=== PATIENT | female | born 1980 | race Asian ===

== ENCOUNTER → 2018-10-13 | Outpatient (CLI) | payer OTHER, SELFPAY ==
[2018-10-13 14:18] VITALS: BMI 19.4
[2018-10-13 19:44] LABS: Chlamydia Trachomatis by PCR Negative (Negative); Neisserai gonorrhoeae by PCR Negative (Negative); Probe Check PASS; Sample Adequacy Control PASS; Specimen Processing Control PASS
[2018-10-19 16:58] LABS: HPV APTIMA, High Risk Negative (Negative)
== END | disposition home or self-care (01) ==
LOC: LABSPEC 17:52
PROVIDERS: Visit Provider Obstetrics & Gynecology
DX: O09.519 Supervision of elderly primigravida, unspecified trimester (principal); Z12.4 Encounter for screening for malignant neoplasm of cervix; Z3A.00 Weeks of gestation of pregnancy not specified
CPT/HCPCS: 87086; 87491; 87591; 87624; 88175; G0145

== ENCOUNTER → 2018-10-17 | Outpatient (CLI) | payer OTHER, SELFPAY ==
[2018-10-13 14:18] VITALS: BMI 19.4
[2018-10-17 16:01] LABS: Absolute Lymphocyte Count 1.28 X10^3/uL (0.83-4.51); Basophil# 0.02 X10^3/uL; Basophil% 0.2 % (0-1); Eosinophil# 0.14 X10^3/uL; Eosinophils% 1.6 % (0-5); Hematocrit 39.4 % (37-47); Hemoglobin 13.4 g/dL (12.0-15.0); Lymphocyte # 1.28 X10^3/ul (4.0); Lymphocyte % 14.4 % (19-41); Mean Corpuscular Hgb 29.6 pg (27.0-32.0); Mean Corpuscular Volume 87.2 fL (81-99); Mean Platelet Vol. 10.4 fl (6.2-12.0); Monocyte# 0.41 X10^3/uL; Monocyte% 4.6 % (0-10); NRBC Flagged by Analyzer 0 % (0-5); Neutrophil # 7.03 X10^3/uL (2.7-7.7); Neutrophil % 78.9 % (47-70); Platelet Count 192 K/mm3 (150-450); RBC Distribution Width CV 14.1 % (11.6-14.6); RBC Distribution Width SD 45.1 fl (35.1-43.9); Red Blood Count 4.52 M/mm3 (4.2-5.4); White Blood Count 8.9 K/mm3 (4.4-11.0)
[2018-10-18 09:25] LABS: HIV - WCH Non-Reactive (Nonreactive); Hepatitis B Surface Antigen Non-Reactive (Nonreactive)
[2018-10-21 00:53] LABS: Rapid Plasmin Reagin (RPR) NONREACTIVE (NONREACTIVE)
== END | disposition home or self-care (01) ==
LOC: PAVLAB 15:05
PROVIDERS: Referring Provider Obstetrics & Gynecology; Visit Provider Obstetrics & Gynecology
DX: O09.519 Supervision of elderly primigravida, unspecified trimester (principal); Z3A.00 Weeks of gestation of pregnancy not specified
CPT/HCPCS: 36415; 85025; 86592; 86703; 86762; 86850; 86900; 86901; 87340

== ENCOUNTER 2019-01-14 01:10 | Outpatient (CLI) | payer OTHER, SELFPAY ==
[2018-12-23 17:00] VITALS: BMI 20.9
--- NOTE | 2019-01-14 02:08 | CT_ITS ---
STUDY: CT ABDOMEN AND PELVIS WITHOUT CONTRAST REASON FOR EXAM: Female, 38 years old. Right lower quadrant pain. Patient is 21 weeks . RADIATION DOSAGE (If Supplied By Facility): CTDIvol = ( 6.06 ) mGy, DLP = ( 285.97 ) mGycm TECHNIQUE: Transaxial images were obtained from the dome of the diaphragm to the symphysis pubis without oral contrast, and without intravenous contrast. Sagittal and coronal images were reconstructed. Individualized dose optimization techniques were used for this CT. COMPARISON: None. FINDINGS: The visualized lung bases are unremarkable. The visualized portions of the heart are within normal limits. Normal liver. Normal gallbladder and extrahepatic biliary system. Normal spleen. Normal pancreas. Normal bilateral adrenal glands. Normal right kidney. Normal left kidney. Normal visualized stomach. Normal small intestine. The colon is tortuous with increased fecal debris consistent with constipation. Centimeters tubular structure is seen just below the ileocecal valve and seen on coronal images 46, 47 and 48 measuring 4.7 mm most compatible with normal appendix. Normal abdominal aorta. Normal inferior vena cava. Normal retroperitoneum. Normal urinary bladder. There is visualization of the intrauterine with known age of 21 weeks gestation. Normal abdominal wall. Normal osseous structures. CT/Abdomen/Pelvis without Cont IMPRESSION: Constipation. No signs of acute appendicitis. Abdominal viscera within normal limits. Electronically Signed: Yeny Garcia MD at 3:24 EST , Service support ,
[2019-01-14 02:10] VITALS: BMI 21.2
[2019-01-14 02:42] LABS: Absolute Lymphocyte Count 1.86 X10^3/uL (0.83-4.51); Absolute Neutrophil Count 10.7 X10^3/uL (2.0-7.7); Basophil# 0.02 X10^3/uL; Basophil% 0.1 % (0-1); Eosinophil# 0.13 X10^3/uL; Hematocrit 37.4 % (37-47); Hemoglobin 12.1 g/dL (12.0-15.0); Lymphocyte # 1.86 X10^3/ul (4.0); Lymphocyte % 13.6 % (19-41); Mean Corp Hgb Conc 32.4 g/dL (32-36); Mean Corpuscular Volume 86.6 fL (81-99); Mean Platelet Vol. 10.6 fl (6.2-12.0); Monocyte% 6.6 % (0-10); NRBC Flagged by Analyzer 0 % (0-5); Neutrophil # 10.71 X10^3/uL (2.7-7.7); Neutrophil % 78.3 % (47-70); Platelet Count 197 K/mm3 (150-450); RBC Distribution Width CV 13.4 % (11.6-14.6); RBC Distribution Width SD 41.7 fl (35.1-43.9); Red Blood Count 4.32 M/mm3 (4.2-5.4); White Blood Count 13.7 K/mm3 (4.4-11.0)
[2019-01-14 02:53] LABS: Color, Urine Yellow (Yellow); Glucose, Dipstick Normal (Normal); Ketone-Dipstick Negative (Negative); Leukocyte Esterase-Dipstick 25 /ul (Negative); Nitrite-Dipstick Negative (Negative); Occult Blood-Urine Negative /ul (Negative); Protein-Dipstick Negative (Negative); Specific Gravity, Urine 1.015 (1.002-1.030); Urine Bilirubin Dipstick Negative (Negative); Urine Clarity Sl. Cloudy (Clear); Urine Urobilinogen Normal (Normal); Urine pH 6.5 (5.0 - 8.0)
[2019-01-14 03:00] LABS: ALB/GLOB Ratio 0.8 RATIO (0.9-2.4); AST(SGOT) 18 U/L (15-37); Alanine Aminotransfer ALT/SGPT 17 U/L (13-56); Albumin, Serum 3.1 g/dL (3.2-5.0); Alkaline Phosphatase 60 U/L (45-117); Anion Gap 6 (5-15); BUN 10 mg/dL (7-18); BUN/Creat Ratio 19.7 RATIO (10-20); Calcium,Total 8.9 mg/dL (8.5-10.1); Chloride 108 mmol/L (98-107); Creatinine, Serum 0.51 mg/dL (0.55-1.02); EST Glomerular Filtration Rate 144 mL/min (>60); Est Glom Filt Rate - Afr Amer 174 mL/min (>60); Estimated Creatinine Clearance 112.86 ml/min; Globulin 3.8 g/dL (2.2-4.2); Glucose 83 mg/dL (74-106); Potassium 3.9 mmol/L (3.5-5.1); Protein, Total 6.9 g/dL (6.4-8.2); Sodium Level 140 mmol/L (136-145)
[2019-01-14] MEDS: Lactated Ringers 1,000 ML 999 ML IV (03:04)
--- NOTE | 2019-01-14 09:15 | OB.TRI.PN_ITS ---
Progress Notes Date of Service: 01/14/19 Progress Note: Patient presents for triage evaluation secondary to abdominal pain FHT: 130 toco no ctx Assessment and plan: abdominal pain nl ct scan, constipation seen recommend stool softeners reassuring maternal and status patient discharged to home to follow-up as scheduled. See problem list details for additional plan information. Laboratory Studies: Laboratory Tests 01/14/19 01/14/19 01/14/19 Range/Units 02:45 02:25 02:25 WBC 13.7 H (4.4-11.0) K/mm3 RBC 4.32 (4.2-5.4) M/mm3 Hgb 12.1 (12.0-15.0) g/dL Hct 37.4 (37-47) % MCV 86.6 (81-99) fL MCH 28.0 (27.0-32.0) pg MCHC 32.4 (32-36) g/dL RDW Std Deviation 41.7 (35.1-43.9) fl RDW Coeff of Leonard 13.4 (11.6-14.6) % Plt Count 197 (150-450) K/mm3 MPV 10.6 (6.2-12.0) fl Immature Gran % (Auto) 0.400 (0.0-0.9) % Neut % (Auto) 78.3 H (47-70) % Lymph % (Auto) 13.6 L (19-41) % [place] % (Auto) 6.6 (0-10) % Eos % (Auto) 1.0 (0-5) % Baso % (Auto) 0.1 (0-1) % Absolute Neuts (auto) 10.7 H (2.0-7.7) X10^3/uL Absolute Lymphs (auto) 1.86 (0.83-4.51) X10^3/uL Nucleated RBC % 0 (0-5) % Sodium 140 (136-145) mmol/L Potassium 3.9 (3.5-5.1) mmol/L Chloride 108 H (98-107) mmol/L Carbon Dioxide 26.0 (21.0-32.0) mmol/L Anion Gap 6 (5-15) BUN 10 (7-18) mg/dL Creatinine 0.51 L (0.55-1.02) mg/dL Estim Creat Clear Calc 112.86 ml/min Est GFR (MDRD) Af Amer 174 (>60) mL/min Est GFR (MDRD) Non-Af 144 (>60) mL/min BUN/Creatinine Ratio 19.7 (10-20) RATIO Glucose 83 (74-106) mg/dL Calcium 8.9 (8.5-10.1) mg/dL Total Bilirubin 0.50 (0.20-1.00) mg/dL AST 18 (15-37) U/L ALT 17 (13-56) U/L Alkaline Phosphatase 60 (45-117) U/L Total Protein 6.9 (6.4-8.2) g/dL Albumin 3.1 L (3.2-5.0) g/dL Globulin 3.8 (2.2-4.2) g/dL Albumin/Globulin Ratio 0.8 L (0.9-2.4) RATIO Urine Color Yellow (Yellow) Urine Clarity Sl. Cloudy (Clear) Urine pH 6.5 (5.0 - 8.0) Ur Specific [place] 1.015 (1.002-1.030) Urine Protein Negative (Negative) mg/dl Urine Glucose (UA) Normal (Normal) mg/dl Urine Ketones Negative (Negative) mg/dl Urine Occult Blood Negative (Negative) /ul Urine Nitrite Negative (Negative) Urine Bilirubin Negative (Negative) mg/dL Urine Urobilinogen Normal (Normal) mg/dl Ur Leukocyte Esterase 25 H (Negative) /ul - Problem List (1) Abdominal pain affecting Status: Acute Comment: 01/14- seen for abdominal pain, nl ct scan constipation seen Multi Select Codes - Urinary/Genital Urinary/Genital CPT Codes: Other Procedure See Report - no charge
== END 2019-01-14 04:30 | disposition home or self-care (01) ==
LOC: WPOUT 01:15 → WP 01:16
PROVIDERS: Visit Provider Obstetrics & Gynecology
DX: O99.612 Diseases of the digestive system complicating pregnancy, second trimester (principal); K59.00 Constipation, unspecified; Z3A.21 21 weeks gestation of pregnancy
CPT/HCPCS: 96360; 36415; 59050; 74176; 80053; 81002; 85025; 99218; J7120; G0378

== ENCOUNTER → 2019-02-16 16:41 | Outpatient (CLI) | payer OTHER, SELFPAY ==
[2019-02-16 16:19] VITALS: BMI 21.2
[2019-02-16 17:28] LABS: Absolute Lymphocyte Count 1.26 X10^3/uL (0.83-4.51); Absolute Neutrophil Count 7.6 X10^3/uL (2.0-7.7); Basophil# 0.02 X10^3/uL; Basophil% 0.2 % (0-1); Eosinophil# 0.14 X10^3/uL; Eosinophils% 1.4 % (0-5); Hematocrit 33.3 % (37-47); Hemoglobin 10.5 g/dL (12.0-15.0); Lymphocyte # 1.26 X10^3/ul (4.0); Mean Corp Hgb Conc 31.5 g/dL (32-36); Mean Corpuscular Hgb 26.9 pg (27.0-32.0); Mean Corpuscular Volume 85.2 fL (81-99); Mean Platelet Vol. 10.6 fl (6.2-12.0); Monocyte# 0.64 X10^3/uL; Monocyte% 6.6 % (0-10); NRBC Flagged by Analyzer 0 % (0-5); Neutrophil # 7.57 X10^3/uL (2.7-7.7); Neutrophil % 78.4 % (47-70); Platelet Count 198 K/mm3 (150-450); RBC Distribution Width CV 13.2 % (11.6-14.6); RBC Distribution Width SD 40.8 fl (35.1-43.9); Red Blood Count 3.91 M/mm3 (4.2-5.4); White Blood Count 9.7 K/mm3 (4.4-11.0)
[2019-02-16 18:29] LABS: Glucose Challenge Gest 1H 50g 119 mg/dL (70-140)
[2019-02-17 10:11] LABS: Hepatitis B Surface Antigen Non-Reactive (Nonreactive)
== END ==
PROVIDERS: Referring Provider Obstetrics & Gynecology; Visit Provider Obstetrics & Gynecology
DX: O09.519 Supervision of elderly primigravida, unspecified trimester (principal)
CPT/HCPCS: 36415; 82950; 85025; 87340

== ENCOUNTER → 2019-03-24 16:13 | Outpatient (CLI) | payer OTHER, SELFPAY ==
[2019-03-24 15:39] VITALS: BMI 21.2
[2019-03-24 17:13] LABS: Absolute Lymphocyte Count 1.17 X10^3/uL (0.83-4.51); Absolute Neutrophil Count 6.9 X10^3/uL (2.0-7.7); Basophil# 0.02 X10^3/uL; Basophil% 0.2 % (0-1); Eosinophil# 0.18 X10^3/uL; Hematocrit 39.3 % (37-47); Hemoglobin 11.9 g/dL (12.0-15.0); Lymphocyte # 1.17 X10^3/ul (4.0); Lymphocyte % 13.2 % (19-41); Mean Corp Hgb Conc 30.3 g/dL (32-36); Mean Corpuscular Hgb 25.8 pg (27.0-32.0); Mean Corpuscular Volume 85.2 fL (81-99); Mean Platelet Vol. 11.5 fl (6.2-12.0); Monocyte# 0.53 X10^3/uL; NRBC Flagged by Analyzer 0 % (0-5); Neutrophil # 6.94 X10^3/uL (2.7-7.7); Neutrophil % 78.1 % (47-70); Platelet Count 195 K/mm3 (150-450); RBC Distribution Width CV 17.7 % (11.6-14.6); RBC Distribution Width SD 51.7 fl (35.1-43.9); Red Blood Count 4.61 M/mm3 (4.2-5.4); White Blood Count 8.9 K/mm3 (4.4-11.0)
== END ==
PROVIDERS: Referring Provider Obstetrics & Gynecology; Visit Provider Obstetrics & Gynecology
DX: D64.9 Anemia, unspecified (principal)
CPT/HCPCS: 36415; 85025

== ENCOUNTER → 2019-04-24 | Outpatient (CLI) | payer OTHER, SELFPAY ==
[2019-04-24 15:50] VITALS: BMI 21.2
== END | disposition home or self-care (01) ==
PROVIDERS: Visit Provider Obstetrics & Gynecology
DX: O09.519 Supervision of elderly primigravida, unspecified trimester (principal); Z3A.00 Weeks of gestation of pregnancy not specified
CPT/HCPCS: 87081

== ENCOUNTER → 2019-05-18 12:18 | Outpatient (CLI) | payer OTHER, SELFPAY ==
[2019-05-15 15:37] VITALS: BMI 21.2
--- NOTE | 2019-05-18 12:19 | US_ITS ---
STUDY: OBSTETRICAL ULTRASOUND - BIOPHYSICAL PROFILE REASON FOR EXAM: Female, 38 years old WELL BEING LMP: August 14, 2018 PRIOR ULTRASOUND: None. TECHNIQUE: Transabdominal TECHNICAL QUALITY: Adequate. FINDINGS: There is a single intrauterine fetus. The fetus is in a cephalic presentation. There is demonstrated cardiac activity with a heart rate of 138 bpm. There is a normal amniotic fluid volume. The largest amniotic fluid pocket measures 3.45 cm. The amniotic fluid index (TAMERA) is 7.68 cm. The placenta is anterior in location and is not low lying. There are Grade 2 placental changes. Age by LMP: 39 weeks, 4 days. MADELYN by LMP: May 21, 2019. Gender: Female BIOPHYSICAL PROFILE: Breathing Movements (FBM): 2 Gross Body Movements (GBM): 2 Tone (FT): 2 Amniotic Fluid Volume (AFV): 2 TOTAL SCORE: 8 / 8 US/Biophysical Profile IMPRESSION: Normal biophysical profile of 8/8. Electronically Signed: Job Gardner, at 14:55 EDT , Service support ,
== END ==
PROVIDERS: Referring Provider Obstetrics & Gynecology; Visit Provider Obstetrics & Gynecology
DX: O09.519 Supervision of elderly primigravida, unspecified trimester (principal); O34.10 Maternal care for benign tumor of corpus uteri, unspecified trimester; D25.9 Leiomyoma of uterus, unspecified
CPT/HCPCS: 76818

== ENCOUNTER 2019-05-21 11:54 | Inpatient (IN) | payer OTHER, SELFPAY ==
[2019-05-15 15:37] VITALS: BMI 21.2
[2019-05-21] VITALS (33 sets, daily range): BP systolic 91–134; BP diastolic 52–78; PULSE 68–106; TEMP 36.2–37.2; O2SAT 84–100; BMI 23.1
--- NOTE | 2019-05-21 12:23 | HP.PCM_ITS ---
- Problem List (1) Mild anemia Status: Acute Comment: repeat CBC in 1 month-wnl (2) Uterine fibroids affecting Status: Acute Comment: growth us q 4 weeks, right lower uterus, 04/20 adequate growth, stable fibroids (3) Choroid plexus cyst of fetus Status: Acute (4) Influenza vaccine administered Status: Acute Comment: given on 11/25/18 (5) Uterine fibroid in Status: Acute Comment: low posterior 6.53cm x 4.17cm Rpt US 4 weeks (6) Status: Acute Qualifiers: Comment: nl carrier ntd. NIPT low risk. Normal Anatomy, adequate growth (7) Supervision of primigravida of advanced maternal age, antepartum Status: Acute Comment: PRR MADELYN 05/21/19 girl Mic History Date of Admission: 05/21/19 Final MADELYN: 05/21/19 Gestational age: 40 Weeks and 0 Days History of this : This is a 38 year-old, at 40 weeks gestational age presents for IOL AMA. she had questionable LOF, rom plus was sent. no regular ctx Medical History: Medical History (Last Reviewed 05/15/19 @ 15:37 by Kathie Dudley) Stomach ulcer K25.9 Surgical History: Surgical History (Last Reviewed 05/15/19 @ 15:37 by Kathie Dudley) No significant past medical history Allergies No Known Allergies Allergy (Verified 05/15/19 15:37) Home Medications: Home Medications PNV 22-iron 27 mg iron-folic acid 1 mg-docusate 50 mg-dha 250 mg pack 1 pkg PO DAILY ea 10/13/18 Smoking Status: Never smoker Alcohol: None Number of Fetus(es): 1 NST - FHR Rate Baby A Baseline: 130 Variability:: Moderate Accelerations:: 15 x 15 Decelerations:: None NST Reactive:: Yes FHR Category:: Category I Uterine Activity:: no regular History Past Pregnancies: Past Pregnancies Delivery Date Name GA/ Weeks Outcome Route Wt Sex Labor Length Anesthesia Delivery Location Provider FOB Labs: Social History Smoking Status Never smoker Review of Systems Constitutional: Denies: Fever, Malaise Eyes: Denies: Blurred vision, Vision Change HEENT: Denies: Head Aches, Visual Changes Cardiovascular: Denies: Chest Pain, Palpitations Respiratory: Denies: Cough, Shortness of Breath, Wheezing Gastrointestinal: Denies: Abdominal Pain, Diarrhea, Nausea, Vomiting Genitourinary: Denies: Dysuria, Hematuria Musculoskeletal: Denies: Joint Pain, Muscle pain Skin: Denies: Lesions, Rash Neurological: Denies: Blurred vision, Focal weakness, Headaches Psychiatric: Denies: Anxiety, Depression Endocrine: Denies: Heat/ Cold Intolerance Hematologic/ Lymphatic: Denies: Easy Bruising, Easy Bleeding Physical Exam General: Alert, Cooperative, No apparent distress HEENT: Atraumatic, Normocephalic. Negative for: Thyromegaly, Lymphadenopathy Cardiovascular: Regular rate Lungs: Normal air movement Abdomen: Soft, Non Tender, Gravid Neurological: Deep Tendon Reflexes 2+/4 and Symmetrical, Neuro grossly intact. Negative for: Clonus [employer]: Normal external genitalia. Negative for: Vulvar lesions Estimated gestational size: Appropriate for gestational size Presentation: Cephalic Assessment/Plan All Active Problems (Last Reviewed 05/15/19 @ 15:37 by Kathie Dudley) Mild anemia (Acute) Uterine fibroids affecting (Acute) Choroid plexus cyst of fetus (Acute) Influenza vaccine administered (Acute) Uterine fibroid in (Acute) (Acute) Supervision of primigravida of advanced maternal age, antepartum (Acute) Abdominal pain affecting (Resolved) This is a 38 year-old, at 40 weeks gestational age presents for IOL ama. Patient presents IOL, plan management for , pitocin/AROM. Pain management: Plans epidural. GBS negative. Management of any complications: None I have reviewed the [facility] and made any clinically relevant updates.
[2019-05-21] MEDS: Lactated Ringers 1,000 ML 50 ML IV (13:05)
[2019-05-21 13:56] LABS: Absolute Lymphocyte Count 1.23 X10^3/uL (0.83-4.51); Absolute Neutrophil Count 5.8 X10^3/uL (2.0-7.7); Basophil# 0.02 X10^3/uL; Basophil% 0.3 % (0-1); Eosinophil# 0.07 X10^3/uL; Eosinophils% 0.9 % (0-5); Hematocrit 38.7 % (37-47); Hemoglobin 12.3 g/dL (12.0-15.0); Lymphocyte # 1.23 X10^3/ul (4.0); Mean Corp Hgb Conc 31.8 g/dL (32-36); Mean Corpuscular Hgb 25.7 pg (27.0-32.0); Mean Corpuscular Volume 80.8 fL (81-99); Mean Platelet Vol. 12.1 fl (6.2-12.0); Monocyte# 0.52 X10^3/uL; Monocyte% 6.8 % (0-10); NRBC Flagged by Analyzer 0 % (0-5); Neutrophil # 5.83 X10^3/uL (2.7-7.7); Neutrophil % 75.6 % (47-70); Platelet Count 161 K/mm3 (150-450); RBC Distribution Width CV 16.2 % (11.6-14.6); RBC Distribution Width SD 47.1 fl (35.1-43.9); Red Blood Count 4.79 M/mm3 (4.2-5.4); White Blood Count 7.7 K/mm3 (4.4-11.0)
[2019-05-21] MEDS: Oxytocin 30 units/NS 500 ml 30 UNITS/500 ML IV.SOLN IV (13:58)
[2019-05-21] MEDS: Lactated Ringers 500 ML 999 ML IV ×3 (18:20→20:14)
[2019-05-21] MEDS: fentaNYL-bupivacaine (epidural) 100 ML BAG EPIDURAL ×2 (19:54→23:59)
[2019-05-21] MEDS: Lactated Ringers 1,000 ML 200 ML IV (23:51)
[2019-05-22] VITALS (35 sets, daily range): BP systolic 89–119; BP diastolic 53–69; PULSE 76–99; RESP 14–16; TEMP 36.3–38; O2SAT 94–99
[2019-05-22] MEDS: Lactated Ringers 500 ML 999 ML IV (02:07)
[2019-05-22] MEDS: Lactated Ringers 1,000 ML 200 ML IV ×2 (05:02→10:10)
[2019-05-22] MEDS: fentaNYL-bupivacaine (epidural) 100 ML BAG EPIDURAL (05:02)
--- NOTE | 2019-05-22 06:54 | PCM.PN.BLA ---
Progress Note Patient comfortable with epidural. Pitocin was off for period of time due to category 2 tracing. Not restarted at 2 milliunits but has not been increased due to minimal variability. Tracing reviewed and exam station. With cervical check heart tones positive acceleration and moderate variability therefore plan increasing Pitocin per protocol. There appears to be adequate room on pelvic exam although the patient has several known large fibroids that could be interfering with labor. Continue Pitocin per protocol STROKE Vital Signs/Narrative: Vital Signs Temp Pulse BP Pulse Ox 05/22/19 06:17 82 101/59 L 95 05/22/19 05:08 83 94/54 L 05/22/19 05:07 98.7 F 95 05/22/19 04:22 80 90/54 L 05/22/19 04:21 98.4 F 98 05/22/19 03:37 89 93/55 L 97
[2019-05-22] MEDS: Oxytocin 30 units/NS 500 ml 30 UNITS/500 ML IV.SOLN 334 UNITS IV (11:22)
[2019-05-22] MEDS: 0.9% Saline Lock 10 ML Syringe IV (15:10)
[2019-05-22] MEDS: Naproxen 250 MG Tablet 500 MG PO (16:14)
[2019-05-22] MEDS: Acetaminophen 500 MG Tablet 1000 MG PO (20:40)
[2019-05-23] MEDS: Naproxen 250 MG Tablet 500 MG PO ×2 (01:41→19:51)
[2019-05-23 03:00] VITALS: TEMP 36.2
[2019-05-23 04:41] VITALS: BP 91/49; PULSE 75; RESP 16; TEMP 36.4; O2SAT 98
--- NOTE | 2019-05-23 06:32 | PCM.PN.OB ---
Subjective: doing well no complaints pain controlled no CP SOB N V ambulating well tolerating po lochia moderate, going well - Physical Exam Vitals/I&O's: Vital Signs Temp Pulse Resp BP Pulse Ox 97.6 F L 75 16 91/49 L 98 05/23/19 04:41 05/23/19 04:41 05/23/19 04:41 05/23/19 04:41 05/23/19 04:41 Oxygen Delivery Method Room Air Weight: 122 lb 2.177 oz Body Mass Index (BMI) 23.1 Intake and Output for Last 24 Hours 05/21/19 05/22/19 05/23/19 23:59 23:59 23:59 Intake Total 2474.60 / 2474.60 3958.13 / 3958.13 Output Total 2700 / 2700 Balance 2474.60 / 2474.60 1258.13 / 1258.13 General: Alert, Oriented x3 Current Medications Acetaminophen (Tylenol) 1,000 mg PO Q8H PRN PRN PRN Reason: Pain or Fever Last Admin: 05/22/19 20:40 Dose: 1,000 mg Documented by: Bisacodyl (Dulcolax) 10 mg RECTAL UD PRN PRN Reason: If no BM Dibucaine (Dibucaine) 1 applic TOPICAL TID PRN PRN; Protocol PRN Reason: Discomfort Hydrocortisone (Hytone) 1 applic TOPICAL TID PRN PRN; Protocol PRN Reason: Discomfort Naproxen (Naprosyn) 500 mg PO Q8H PRN PRN PRN Reason: Pain Score 1-3/10 Last Admin: 05/23/19 01:41 Dose: 500 mg Documented by: Senna/Docusate Sodium (Senokot-S, Samira-Colace) 1 - 2 tablet PO DAILY PRN PRN PRN Reason: Constipation Simethicone (Mylicon) 80 mg PO PCHS PRN PRN Reason: Indigestion/Stomach pain Medical Necessity - Tobacco Use Smoking Status: Never smoker Assessment/Plan All Active Problems (Last Reviewed 05/15/19 @ 15:37 by Kathie Dudley) Mild anemia (Acute) Uterine fibroids affecting (Acute) Choroid plexus cyst of fetus (Acute) Influenza vaccine administered (Acute) Uterine fibroid in (Acute) (Acute) Supervision of primigravida of advanced maternal age, antepartum (Acute) Abdominal pain affecting (Resolved) s/p PPD # 1 1. routine post delivery care 2. breast feeding- support given 3. rh positive 4. rubella immune
--- NOTE | 2019-05-23 07:20 | OP.PCM_ITS ---
Problem List (1) Mild anemia Status: Acute Comment: repeat CBC in 1 month-wnl (2) Uterine fibroids affecting Status: Acute Comment: growth us q 4 weeks, right lower uterus, 04/20 adequate growth, stable fibroids (3) Choroid plexus cyst of fetus Status: Acute (4) Influenza vaccine administered Status: Acute Comment: given on 11/25/18 (5) Uterine fibroid in Status: Acute Comment: low posterior 6.53cm x 4.17cm Rpt US 4 weeks (6) Status: Acute Qualifiers: Comment: nl carrier ntd. NIPT low risk. Normal Anatomy, adequate growth (7) Supervision of primigravida of advanced maternal age, antepartum Status: Acute Comment: PRR MADELYN 05/21/19 girl Cune Vaginal Delivery Maternal Presentation: Medically Indicated Induction iol ama Amniotic Membrane Rupture Type: Artificial Amniotic Fluid Description: Clear Final MADELYN: 05/21/19 Gestational age: 40 Weeks and 2 Days Date of Procedure: 05/22/19 Pre-Operative Diagnosis: iol ama Post-Operative Diagnosis: same Surgery/ Procedure Performed: Spontaneous Vaginal Delivery Type of Anesthesia: Epidural Description of Procedure: Patient began pushing and delivered the head in the KIA presentation. The head was delivered atraumatically. The anterior and posterior shoulders delivered without complication followed by the rest of the infant and the infant was placed on the maternal abdomen. Delayed cord clamping was employed for approxi mately 60 seconds. Cord was clamped and cut and gentle traction was applied to the cord and the placenta delivered spontaneously immediately following it was noted to be intact with three-vessel cord. The perineum and vagina were inspected and noted to have a second-degree perineal laceration that was repaired in the usual fashion with 3-0 Vicryl repeat. EBL was 200 cc. Patient and infant tolerated delivery well. Presentation: KIA Placental Delivery Description: Spontaneous Placenta Disposition: [facility] Estimated Blood Loss: 200 Infant A gender: Female Episiotomy Description: None Laceration: Perineal Extension/lac, 2nd degree Medications given after delivery: IV Pitocin Complications: None Multi Select Codes - Urinary/Genital Urinary/Genital CPT Codes: 78078 [facility]
--- NOTE | 2019-05-23 07:22 | DCINST_ITS ---
Discharge Diet: No Restrictions Discharge Activity: Return to Normal Activity, May not drive while taking narcotic pain medications., May Shower May resume sexual activity in: 4-6 weeks Call your doctor if your incision/area has: Continuous Slow Oozing, Sudden Increased Bleeding, Increased Pain/ Swelling, Increased Redness, Foul Smelling Discharge Additional Instructions: If you experience any of the following, contact your healthcare provider. * Bleeding that soaks a pad every hour for 2 hours * Fever 100.4 or higher * Unrelieved incision or abdominal pain * Swelling, redness, discharge or bleeding from your incision or episiotomy site * Your incision begins to separate * Problems urinating (including inability to urinate or burning while urinating). * Visual changes * Severe headache * Flu-like symptoms * Pain or redness in one of both of your breasts * Pain, warmth, tenderness or swelling in your legs, especially the calf area * Frequent nausea and vomiting * Symptoms of depression or anxiety If you experience any of the following, call 911 or go to the nearest Emergency Room. * Chest pain * Problems breathing * Seizure activity * Partial or complete paralysis of a body part, slurred speech, weakness or drooping of the face, or a sudden inability to walk or hold your balance Allergies/Adverse Reactions: Allergies No Known Allergies Allergy (Verified 05/15/19 15:37) Medications to take at Discharge PNV 22-iron 27 mg iron-folic acid 1 mg-docusate 50 mg-dha 250 mg pack 1 pkg PO DAILY ea 10/13/18 Naproxen [Naprosyn] 250 - 500 mg PO Q8H PRN PRN #30 tab 05/23/19 The following prescriptions were given: Naproxen [Naprosyn] 250 - 500 mg PO Q8H PRN PRN #30 tab PRN Reason: MILD PAIN Transmission Status: Pending to [facility] Please Follow Up With: Taniya Senior MD - [phone] When: Call to make an appointment with your doctor in 6 weeks. If you had elevated Blood pressure or 4th degree laceration you will need to be seen in 2 weeks. Primary Care Physician: Care Physician,No Primary [Primary Care Provider] - Test Results: Test results from this visit will be discussed in further detail at your follow- up appointment, if applicable.
--- NOTE | 2019-05-23 07:22 | PCM.DCVAG ---
Discharge Diet: No Restrictions Discharge Activity: Return to Normal Activity, May not drive while taking narcotic pain medications., May Shower May resume sexual activity in: 4-6 weeks Call your doctor if your incision/area has: Continuous Slow Oozing, Sudden Increased Bleeding, Increased Pain/ Swelling, Increased Redness, Foul Smelling Discharge Additional Instructions: If you experience any of the following, contact your healthcare provider. Bleeding that soaks a pad every hour for 2 hours Fever 100.4 or higher Unrelieved incision or abdominal pain Swelling, redness, discharge or bleeding from your incision or episiotomy site Your incision begins to separate Problems urinating (including inability to urinate or burning while urinating). Visual changes Severe headache Flu-like symptoms Pain or redness in one of both of your breasts Pain, warmth, tenderness or swelling in your legs, especially the calf area Frequent nausea and vomiting Symptoms of depression or anxiety If you experience any of the following, call 911 or go to the nearest Emergency Room. Chest pain Problems breathing Seizure activity Partial or complete paralysis of a body part, slurred speech, weakness or drooping of the face, or a sudden inability to walk or hold your balance Allergies/Adverse Reactions: Allergies No Known Allergies Allergy (Verified 05/15/19 15:37) Medications to take at Discharge PNV 22-iron 27 mg iron-folic acid 1 mg-docusate 50 mg-dha 250 mg pack 1 pkg PO DAILY ea 10/13/18 Naproxen [Naprosyn] 250 - 500 mg PO Q8H PRN PRN #30 tab 05/23/19 The following prescriptions were given: Naproxen [Naprosyn] 250 - 500 mg PO Q8H PRN PRN #30 tab PRN Reason: MILD PAIN Transmission Status: Pending to [facility] Please Follow Up With: Taniya Senior MD - [phone] When: Call to make an appointment with your doctor in 6 weeks. If you had elevated Blood pressure or 4th degree laceration you will need to be seen in 2 weeks. Primary Care Physician: Care Physician,No Primary [Primary Care Provider] - Test Results: Test results from this visit will be discussed in further detail at your follow-up appointment, if applicable.
[2019-05-23 08:45] VITALS: BP 95/57; PULSE 77; RESP 16; TEMP 36.4; O2SAT 98
[2019-05-23 14:30] VITALS: BP 101/53; PULSE 95; RESP 16; TEMP 36.7; O2SAT 98
[2019-05-23 19:40] VITALS: BP 99/51; PULSE 85; RESP 16; TEMP 36.8; O2SAT 97
[2019-05-23] MEDS: Dibucaine 30 GM Tube 1 APPLIC TOPICAL (19:51)
[2019-05-24 02:55] VITALS: BP 106/45; PULSE 70; RESP 17; TEMP 36.8; O2SAT 99
[2019-05-24] MEDS: Naproxen 250 MG Tablet 500 MG PO (03:58)
--- NOTE | 2019-05-24 07:39 | PCM.PN.OB ---
Subjective: Doing well, no complaints.Pain controlled. Denies CP, SOB, N,V. Ambulating well, tolerating po. Lochia moderate, going well. - Physical Exam Vitals/I&O's: Vital Signs Temp Pulse Resp BP Pulse Ox 98.2 F 70 17 106/45 L 99 05/24/19 02:55 05/24/19 02:55 05/24/19 02:55 05/24/19 02:55 05/24/19 02:55 Oxygen Delivery Method Room Air Weight: 122 lb 2.177 oz Body Mass Index (BMI) 23.1 Intake and Output for Last 24 Hours 05/22/19 05/23/19 05/24/19 23:59 23:59 23:59 Intake Total 3958.13 / 3958.13 Output Total 2700 / 2700 Balance 1258.13 / 1258.13 General: Alert, Oriented x3 Abdomen: Soft, Non Tender, - - FF below U Current Medications Acetaminophen (Tylenol) 1,000 mg PO Q8H PRN PRN PRN Reason: Pain or Fever Last Admin: 05/22/19 20:40 Dose: 1,000 mg Documented by: Bisacodyl (Dulcolax) 10 mg RECTAL UD PRN PRN Reason: If no BM Dibucaine (Dibucaine) 1 applic TOPICAL TID PRN PRN; Protocol PRN Reason: Discomfort Last Admin: 05/23/19 19:51 Dose: 1 applicatio Documented by: Hydrocortisone (Hytone) 1 applic TOPICAL TID PRN PRN; Protocol PRN Reason: Discomfort Naproxen (Naprosyn) 500 mg PO Q8H PRN PRN PRN Reason: Pain Score 1-3/10 Last Admin: 05/24/19 03:58 Dose: 500 mg Documented by: Senna/Docusate Sodium (Senokot-S, Samira-Colace) 1 - 2 tablet PO DAILY PRN PRN PRN Reason: Constipation Simethicone (Mylicon) 80 mg PO PCHS PRN PRN Reason: Indigestion/Stomach pain Medical Necessity - Tobacco Use Smoking Status: Never smoker Assessment/Plan All Active Problems (Last Reviewed 05/15/19 @ 15:37 by Kathie Dudley) Mild anemia (Acute) Uterine fibroids affecting (Acute) Choroid plexus cyst of fetus (Acute) Influenza vaccine administered (Acute) Uterine fibroid in (Acute) (Acute) Supervision of primigravida of advanced maternal age, antepartum (Acute) Abdominal pain affecting (Resolved) s/p PPD # 2 1. routine post delivery care 2. breast feeding- support given 3. rh positive 4. rubella immune 5. encouraged stool softener 6. home today
[2019-05-24 08:00] VITALS: BP 106/45; PULSE 85; RESP 18; TEMP 36.7
[2019-05-24] MEDS: Acetaminophen 500 MG Tablet 1000 MG PO (08:30)
== END 2019-05-24 10:20 | disposition home or self-care (01) | DRG 807 ==
PROVIDERS: Admitting Provider Obstetrics & Gynecology; Referring Provider Obstetrics & Gynecology; Visit Provider Obstetrics & Gynecology
DX: O34.13 Maternal care for benign tumor of corpus uteri, third trimester (principal); Z37.0 Single live birth; Z3A.40 40 weeks gestation of pregnancy; D25.9 Leiomyoma of uterus, unspecified; O35.8XX0 Maternal care for other (suspected) fetal abnormality and damage, not applicable or unspecified; O70.1 Second degree perineal laceration during delivery
CPT/HCPCS: 59050; 85025; 86850; 86900; 86901; 99218; J7120; A4216; G0378

== ENCOUNTER → 2019-09-12 12:49 | Outpatient (CLI) | payer OTHER, SELFPAY ==
[2019-08-23 12:10] VITALS: BMI 23.1
--- NOTE | 2019-09-12 12:49 | US_ITS ---
STUDY: ULTRASOUND OF THE FEMALE PELVIS - COMPLETE REASON FOR EXAM: Female, 38 years old. POST 4 MONTHS. HX OF FIBROIDS. LMP: 2019 TECHNIQUE: Transabdominal and Transvaginal TECHNICAL QUALITY: Adequate. COMPARISON: CT of the abdomen and pelvis, January 14, 2019. FINDINGS: The uterus is retroverted and is in a midline position. The uterus measures 9.1 x 5.2 x 4.1 cm. Normal uterine cervix. The endometrium measures 8 mm in thickness, and is hyperechoic. There is no demonstrated endometrial mass. In the fundus there is a 3.7 x 3.4 x 2.5 cm heterogenous fibroid. There is a right-sided pedunculated 4.4 x 3.5 x 3.2 cm. I.U.D. - The patient does not have an I.U.D. The right ovary is visualized. The right ovary measures 3.8 x 2.4 x 1.6 cm. There are multiple follicles of the right ovary without a dominant cyst. There is no visualized right adnexal mass or complex lesion. There is normal arterial and normal venous vascularity. The left ovary is visualized. The left ovary measures 3.0 x 2.5 x 1.2 cm. There is no left ovarian cyst or ovarian mass. There is no visualized left adnexal mass or complex lesion. There is normal arterial and normal venous vascularity. There is no fluid in the cul-de-sac. The urinary bladder is grossly normal. Polycystic ovary disease: No. US/Transvaginal Non- IMPRESSION: 1. Fibroid uterus. 2. Normal ovaries. Electronically Signed: Palmer Hernadez DO at 23:42 EDT Tel [phone], Service support ,
--- NOTE | 2019-09-12 12:49 | US_ITS ---
STUDY: ULTRASOUND OF THE FEMALE PELVIS - COMPLETE REASON FOR EXAM: Female, 38 years old. POST 4 MONTHS. HX OF FIBROIDS. LMP: 2019 TECHNIQUE: Transabdominal and Transvaginal TECHNICAL QUALITY: Adequate. COMPARISON: CT of the abdomen and pelvis, January 14, 2019. FINDINGS: The uterus is retroverted and is in a midline position. The uterus measures 9.1 x 5.2 x 4.1 cm. Normal uterine cervix. The endometrium measures 8 mm in thickness, and is hyperechoic. There is no demonstrated endometrial mass. In the fundus there is a 3.7 x 3.4 x 2.5 cm heterogenous fibroid. There is a right-sided pedunculated 4.4 x 3.5 x 3.2 cm. I.U.D. - The patient does not have an I.U.D. The right ovary is visualized. The right ovary measures 3.8 x 2.4 x 1.6 cm. There are multiple follicles of the right ovary without a dominant cyst. There is no visualized right adnexal mass or complex lesion. There is normal arterial and normal venous vascularity. The left ovary is visualized. The left ovary measures 3.0 x 2.5 x 1.2 cm. There is no left ovarian cyst or ovarian mass. There is no visualized left adnexal mass or complex lesion. There is normal arterial and normal venous vascularity. There is no fluid in the cul-de-sac. The urinary bladder is grossly normal. Polycystic ovary disease: No. US/Pelvic (Non ) IMPRESSION: 1. Fibroid uterus. 2. Normal ovaries. Electronically Signed: Palmer Hernadez DO at 23:42 EDT Tel [phone], Service support ,
== END ==
PROVIDERS: Referring Provider Obstetrics & Gynecology; Visit Provider Obstetrics & Gynecology
DX: D25.9 Leiomyoma of uterus, unspecified (principal)
CPT/HCPCS: 76830; 76856

== ENCOUNTER 2020-07-12 11:07 | Outpatient (RCR) | payer OTHER, SELFPAY ==
[2019-08-23 12:10] VITALS: BMI 23.1
== END 2020-08-16 23:59 ==
LOC: IMMUN 11:07
PROVIDERS: Visit Provider Family Medicine
DX: Z23 Encounter for immunization (principal)
CPT/HCPCS: 0001A; 91300

== ENCOUNTER → 2020-09-06 15:27 | Outpatient (CLI) | payer OTHER, SELFPAY ==
[2019-08-23 12:10] VITALS: BMI 23.1
[2020-09-05 15:02] VITALS: BMI 23.1
--- NOTE | 2020-09-06 16:00 | BI_ITS ---
MAMMOGRAPHY - BILATERAL SCREENING REASON FOR EXAM: Female, 39 years old. Routine annual screening examination. PERTINENT HISTORY: Grandmother with breast cancer. TECHNIQUE: Digital bilateral breast priyanka (3D mammographic acquisition) in the CC and MLO projections. 2-D mediolateral oblique (MLO) and craniocaudad (CC) views of both breasts were obtained. CAD: Full Field Digital Mammography with Computer Added Detection was performed. COMPARISON: None. Baseline examination. FINDINGS: Breast Composition: The breasts are extremely dense, which lowers the sensitivity of mammography. There are no dominant masses or suspicious calcifications. No other significant abnormalities are identified. BI/SCRN MAMM (CAD)W/PRIYANKA BILAT IMPRESSION: Negative screening mammogram. Yearly followup mammogram recommended. (A) ASSESSMENT CATEGORY: BIRADS Category 1: Negative. A letter regarding these results will be sent to the patient by the facility within 30 days. Approximately 10% of breast cancers are not detected by mammography. A normal mammogram should not delay biopsy of a clinically suspicious abnormality. [id number] Electronically Signed: Job Gardner MD at 8:42 EDT , Service support ,
--- NOTE | 2020-09-06 16:36 | US_ITS ---
STUDY: ULTRASOUND OF THE FEMALE PELVIS - COMPLETE REASON FOR EXAM: Female, 39 years old. Uterine fibroid LMP: TECHNIQUE: Transabdominal and Transvaginal TECHNICAL QUALITY: Adequate. COMPARISON: September 12, 2019 ultrasound pelvis , FINDINGS: The uterus is retroverted and is in a midline position. The uterus measures 7.8 x 8.0 x 7.6 cm. Normal uterine cervix. The endometrium measures 9 mm in thickness, and is hyperechoic. There is no demonstrated endometrial mass. Again noted is a hypoechoic vascular mass within the fundus of the uterus measuring approximately 4.2 x 4.7 x 3.2 cm. On prior study the fundal mass was measured at 3.7 x 3.4 x 2.5 cm. To the right of the right of the fundus there is a 3.3 x 2.1 x 2.7 cm pedunculated fibroid, this appears smaller than the prior study it was measured 4.4 x 3 x 5 x 3.2 cm.. There is a smaller fibroid measuring approximately 1.4 x 0.9 cm within the fundus. The transverse image ultrasound pelvis transabdominal approach measured the larger fibroid approximately 4.9 x 3.9 x 4.4 cm. There is a similar measurement on the transabdominal approach today. The larger I.U.D. - The patient does not have an I.U.D. The right ovary is visualized. The right ovary measures 3.2 x 2.4 x 1.2 cm. There is no right ovarian cyst or ovarian mass. There is no visualized right adnexal mass or complex lesion. There is normal arterial and normal venous vascularity. The left ovary is visualized. The left ovary measures 3.3 x 2.4 x 2.8 cm. There is a small benign-appearing left ovarian cyst. There is no visualized left adnexal mass or complex lesion. There is normal arterial and normal venous vascularity. There is no fluid in the cul-de-sac. The pre void volume of the bladder was 295 ml. Polycystic ovary disease: No. US/Transvaginal Non- IMPRESSION: The myometrial fundal mass is larger than on prior study. In today''s study it measured 4.2 x 4.7 x 3.2 cm on prior study measured approximately 3.7 x 3.4 x 2.5 cm. The fundal fibroid which is pedunculated on the right-sided uterus is measured at 3.3 x 3.1 x 2.7 cm on today''s study when on prior study was measured at 4.4 x 2.5 x 2.2 cm. Fibroids can enlarge or involute responsive to potentially or hormones medications, however interval enlargement should be followed unless clinically observed otherwise enlargement of fibroids can be associated with metastatic transformation. Recommend close interval follow-up study in 3-6 months to ensure stability. Normal relatively stable endometrium Benign-appearing left ovarian cyst. Electronically Signed: Symone Walls MD at 9:24 EDT Tel , Service support ,
== END ==
PROVIDERS: Referring Provider Obstetrics & Gynecology; Visit Provider Obstetrics & Gynecology
DX: Z12.31 Encounter for screening mammogram for malignant neoplasm of breast (principal); D25.2 Subserosal leiomyoma of uterus; D25.1 Intramural leiomyoma of uterus
CPT/HCPCS: 76830; 76856; 77063; 77067

== ENCOUNTER 2020-12-24 10:43 | Inpatient (IN) | payer OTHER, SELFPAY ==
[2020-12-24] VITALS (16 sets, daily range): BP systolic 90–131; BP diastolic 53–70; PULSE 56–84; RESP 12–18; TEMP 36.4–37.2; O2SAT 94–100; BMI 20.4
--- NOTE | 2020-12-24 | UTER_PTH ---
PATIENT: THIERRY VARGAS LOC: MS2 U#:[id number] AGE/SX: 40/F ROOM: [facility] [id number] RE12/24/[address]: Dr. Rain Rodas DO : 1980 BED: 1 DIS: 12/25/2020 SPEC #: [id number] RECD: 12/24/20 12:38 STATUS: [place] #: [id number] GUY: 12/24/20 00:[address]: Rain Rodas DEPT: SURGICAL PATHOLOGY RECD BY: Arsen Sterling ENTERED: 12/24/20 12:39 SP TYPE: UTERINE CO OTHR DR: No Primary Care Phys Tissues: Uterine cervix, NOS Procedures: Surgery Specimen Level IV HEADER OPERATION: ERAS, mini laparotomy, myomectomy PRE-OP DIAGNOSIS: Uterine fibroids TISSUE SUBMITTED: Uterine fibroids MICROSCOPIC DIAGNOSIS Uterine fibroids, myomectomy: Leiomyomas with focal area of degenerative changes and calcification (largest measuring 4.5 cm in greatest dimension). ANU:[email or web address] 12/25/2020 MICROSCOPIC DESCRIPTION Slides are reviewed. GROSS DESCRIPTION Received in fixative is one container labeled with the patient's name and designated uterine fibroids. The specimen consists of five variable sized pieces of sandoval nodular masses weighing in aggregate 35 gm and measuring in aggregate 6 x 5 x 4 cm. The largest mass measures 4.5 cm in greatest dimension. Sections of the second largest mass reveal focal yellowish degenerative changes. Sections of the rest of the specimen reveal sandoval whorled cut surfaces without areas of hemorrhage, necrosis or cystic degeneration. Assistant Manager Quality Management sections are submitted in four cassettes as follows: 1 & 2 - largest mass, 3??second largest mass, 4 - smaller masses. / ANU:jessika 12/24/20 TC:1 CPT: 63129
[2020-12-24] MEDS: Scopolamine 1mg/72hr Patch 1 PATCH TD (07:00)
[2020-12-24] MEDS: Lactated Ringers 1,000 ML 70 ML IV ×2 (07:00→12:05)
[2020-12-24] MEDS: dexAMETHasone 10 MG/ML Vial 8 MG IV (07:00)
[2020-12-24] MEDS: Lactated Ringers 1,000 ML 40 ML IV (07:00)
[2020-12-24 07:25] LABS: Internal QC Validated? YES +Cl - CLEAR BKGD; Pregnancy, Urine Negative Negative
[2020-12-24] MEDS: Phenazopyridine 95 MG Tablet 190 MG PO (07:38)
[2020-12-24] MEDS: Celecoxib 200 MG Capsule 400 MG PO (07:39)
[2020-12-24] MEDS: Gabapentin 600 MG Tablet PO (07:39)
[2020-12-24] MEDS: Acetaminophen 500 MG Tablet 1000 MG PO ×3 (07:39→18:13)
[2020-12-24 07:49] LABS: Hematocrit 39.8 % (37-47); Hemoglobin 12.8 g/dL (12.0-15.0); Mean Corp Hgb Conc 32.2 g/dL (32-36); Mean Corpuscular Volume 87.1 fL (81-99); Mean Platelet Vol. 10.5 fl (6.2-12.0); Platelet Count 216 K/mm3 (150-450); RBC Distribution Width CV 13.9 % (11.6-14.6); RBC Distribution Width SD 43.9 fl (35.1-43.9); Red Blood Count 4.57 M/mm3 (4.2-5.4); White Blood Count 5.4 K/mm3 (4.4-11.0)
[2020-12-24 07:57] LABS: Magnesium 2.2 mg/dL (1.6-2.6)
[2020-12-24 08:05] LABS: Bedside Glucose 100 mg/dL (70-110)
--- NOTE | 2020-12-24 08:47 | PCM.HP.BLA ---
History and Physical Date of Admission: 12/24/20 Intake Vital Signs 12/13/20 14:36 12/19/20 11:02 Height 5 ft 1 in 5 ft 1 in Weight: 109 lb 6 oz BMI 20.6 BP 110/80 Intake Visit Reasons: Discuss Robotic Myomectomy Director Of Accounts Receivable Required: No Allergies No Known Allergies Allergy (Verified 12/19/20 11:03) Medications L-Theanine 100 mg PO/SL DAILY 12/17/20 [History Confirmed 12/19/20] melatonin 5 mg PO QHS 12/17/20 [History Confirmed 12/19/20] multivitamin 1 tab PO DAILY 12/17/20 [History Confirmed 12/19/20] Post menopausal: No Patient : No : No PFSH Medical History Anemia Non-smoker Stomach ulcer Uterine fibroid Wears contact lenses Wears glasses Surgical History No significant past medical history Family History Grandmother Breast cancer Social History adopted: No household members: spouse housing: apartment current occupational status: unemployed pets and animals: No history of recent travel: Yes details: [place]/ [place], [place], [place] out of state: Yes out of country: Yes sexually active: Yes Smoking Status: Never smoker second hand exposure: No alcohol intake: never substance use type: does not use seatbelt use: always do you feel safe at home: Yes 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 She is interested in a robotic myomectomy to improve the quality of her next planned . Ultrasound shows a fundal fibroid measuring 3-4 cm and decreased slightly from prior exam. There are also 2 other 3 cm submucosal fibroids. after a thorough discussion about multiple incisons plus a mini-lap, the decision was made to proceed with a laparotomy only. This incision is also able to be utilized in the future for her section after she conceives. Surgery is scheduled for next Wednesday. The risks, benefits, and alternatives were discussed and a consent from was signed. Female Reproductive History Menopausal Symptoms: No night sweats, No difficulty concentrating and No change in libido Pregancy History 1 Elective abortions Hx Para 1 Spontaneous abortions Hx # Term Pregnancies Ectopic pregnancies Hx # Pregnancies Multiple births # of living children 1 Past Pregnancies Del. Date Name GA/Weeks Outcome Route Bth Weight Infant Gen [facility]19 Kelley 40 live - full term Female epidural [facility] Delivery Date: 05/22/19 IoL Amber Quintero Const Constitutional: Reports as per HPI; Denies fatigue, increased appetite, poor appetite, night sweats, weight gain or weight loss ENT ENT: Reports system reviewed and no additional complaints, except as documented Cardio Card: Reports system reviewed and no additional complaints, except as documented Resp Resp: Denies cough, dyspnea or dyspnea on exertion GI GI: Denies abdominal pain, bloating or change in bowel habits : Denies nipple discharge, vaginal odor or vaginal pruritus Details: lochia is mild Musc Musc: Reports system reviewed and no additional complaints, except as documented Skin Skin/Breast: Denies changing lesions, breast mass, breast pain, breast skin changes or nipple discharge Psych Psych: Denies anxiety, change in libido, depression or difficulty concentrating Exam Const General: cooperative, healthy appearing and comfortable [facility] Head: normal to inspection and normocephalic Ears: hearing grossly normal bilaterally and external ears normal Nose: external nose normal Face and sinus: normal facial exam Neck Neck: normal visual inspection, full ROM and no lymphadenopathy Thyroid: thyroid normal Chest Chest palpation & inspection: normal inspection of the chest Breast inspection: normal inspection of the breasts and normal inspection of the axillae Breast palpation: normal palpation of the breasts, normal palpation of the axillae and no axillary lymphadenopathy Resp Effort & Inspection: normal respiratory effort GI Inspection: normal to inspection and non-distended Palpation: soft and nontender Rectal Exam: other Other: exam deferred today Skin General: no rashes or lesions noted Neuro General: patient alert, moves all extremities and no focal motor deficits Extrem General: no edema Psych Appearance: grossly normal Mental Status: mental status grossly normal Affect: normal affect Speech and Movement: speech and movement normal Attitude: cooperative Coding Level of Care Code Off vis,est,level 4 Diagnoses Fibroid, uterine D25.1; D25.2 Uterine leiomyoma location: intramural and subserous Assessment and Plan Assessment and Plan (1) Fibroid, uterine: Status: Acute Qualifiers: Uterine leiomyoma location: intramural and subserous Qualified Code(s): D25.1 - Intramural leiomyoma of uterus; D25.2 - Subserosal leiomyoma of uterus Comment: reviewed US findings. discussed medical vs surgical intervention, patient decided on surgical intervention, wants to maintain fertility, and wants to proceed with a mini -lap that will then be re-opened when she has her next child for section. Risks, benefits, and alternatives were discussed with the patient and consent was signed. 12/19/20 1158<Electronically signed by Rain Celaya DO>Date Rain Celaya DO Cosigner Signature:Date (if applicable) CC: ~ UPDATE- I have seen the patient and performed any clinically relevant updates to the history and physical exam. Rain Rodas DO
[2020-12-24] MEDS: Cefazolin 2 GM in 0.9% Normal Saline 100 ML IV (08:54)
--- NOTE | 2020-12-24 08:54 | PCM.DC ---
Discharge Instructions Diet Discharge Diet: No restrictions Activity Discharge Activity: Return to Normal Activity, May Not Drive (while taking narcotic pain medications.) and May Shower May resume sexual activity in: 6-8 weeks Weight Bearing Status: Weight bearing as tolerated Dressing / Incision Call your doctor if your incision/area has: Continuous Slow Oozing, Sudden Increased Bleeding, Increased Pain/ Swelling, Increased Redness and Foul Smelling Discharge Call your doctor if you observe: Fever of 101 or Higher, Inability to urinate, Inability to have a bowel movement and Using more than 1 pad per hour Follow Up Care Please Follow Up With: Rain Celaya DO Test Results: Test results from this visit will be discussed in further detail at your follow-up appointment, if applicable. Discharge Plan Admission Primary Reason for Your Visit: myomectomy Attending Provider: Rain Celaya Primary Care Provider: Care Physician,Mamie Primary Discharge Orders/Prescriptions Prescriptions: New oxycodone-acetaminophen [oxycodone-acetaminophen] 1 TABLET tablet 1 - 2 tab PO Q6H PRN (Reason: pain) 7 Days Qty: 20 RF: 0 naproxen 500 MG tablet 500 mg PO BID PRN PRN (Reason: Pain) Qty: 30 RF: 0 Continued multivitamin Tablet 1 tab PO DAILY RF: 0 melatonin 5 mg Tablet 5 mg PO QHS RF: 0 L-Theanine 100 mg PO/SL DAILY RF: 0 Referrals / Follow Up: Care Physician,No Primary [Primary Care Provider] - Disposition Disposition (needs filled in before D/C Order can be placed): Home, Self Care
[2020-12-24] MEDS: Vasopressin 20 UNITS/ML Vial ×2 (09:25→10:11)
[2020-12-24] MEDS: Ondansetron 4 MG/2 ML Vial IV (09:58)
[2020-12-24] MEDS: BUPIVACAINE LIPOSOME/PF 20 ML VIAL OPERA.SITE ×2 (10:07→10:16)
--- NOTE | 2020-12-24 10:43 | OP.PCM_ITS ---
Problems Associated Problem List Diagnoses (1) Fibroid, uterine: Report of Operation Date of Procedure: 12/24/20 Pre-Operative Diagnosis: fibroid uterus, menorrhagia, desires fertility Post-Operative Diagnosis: fibroid uterus, menorrhagia, desires fertility Surgery/Procedure Performed:: laparotomy, myomectomy Description of Surgical Findings:: 4 fibroids ranging from 1 cm to 4.5 cm within the myometrium and serosa. 7 cm uterus, normal tubes and ovaries Surgeon: Rain Celaya nursing program coordinator: Taniya Senior Type of Anesthesia: General/Regional Anesthesiologist: Sterling Freire Special Medications: dilute vasopressin, exparel Specimen's removed: uterine fibroids Drains: none Estimated Blood Loss (mL): 50 Fluids Replaced: 500cc Description of Procedure: This is a 40 y/o female who presented with menorrhagia and multiple fibroids within the uterus. She desires fertility. The patient was given options for treatment. The risks, benefits, and alternatives were discussed with the patient and consent was signed. The patient was brought to the operating room where general anesthesia was found to be adequate. She was prepped and draped in the usual sterile fashion. She was placed in dorsal spine position. A Pfannenstiel skin incision was made with a scalpel and carried through to the underlying layers the fascia was nicked in the midline and extended laterally using the Navarro scissors. The anterior aspect the fascia was grasped with [place] clamps and the underlying rectus muscle d issected off with the Bovie cautery. The inferior aspect of the fascia was grasped with Karla clamps and the underlying rectus muscle dissected off with the Bovie. The rectus muscles were in the midline. The peritoneum was opened. The uterus was identified grasped and exteriorized. Bowel was packed away and an Donny retractor was used for visualization. There were noted to be 4 fibroids. 2 are located on the posterior aspect of the uterus and deep in the myometrium one was located on the right cornual region below the fallopian tube. And the last was located on the left lower aspect of the uterus within the serosa. Fibroids were injected with dilute vasopressin. An incision was made in the serosa then using Allis clamps the myometrium was grasped and opened as well the fibroids were grasped and removed to the level of the stalk. Interceed was inserted into the posterior aspect of the uterus. The myometrium was closed with strata fix suture 0 Vicryl suture and a third layer layer of Monocryl suture in the usual baseball stitch pattern. The same procedure was performed for different times for the 4 different fibroids. Interceed was also inserted on the exterior aspect of the uterine overlying the incisions uterus was returned to the abdomen the gutters were cleared of all clots and debris the peritoneum was closed with a 3-0 Monocryl suture. The fascia was closed with a strata fix suture. Muscles were injected with 10cc Exparel. The subcutaneous tissue layer was closed with an 0 Vicryl suture and the skin was closed with a 4-0 Monocryl and sealed with surgical glue the patient tolerated the procedure well sponge lap needle counts were correct x2 and she is now being brought to the recovery room in stable conditions. Grafts/Implants Used: none Complications none Admit VTE Documentation VTE Present on Admission: Yes VTE Mechan Device Prophylaxis: SCD's VTE Pharm Prophylaxis ordered?: No Reason prophylaxis not ordered:: Treatment Not Indicated
[2020-12-24] MEDS: Ketorolac 30 MG/ML Syringe IV ×2 (11:34→18:13)
--- NOTE | 2020-12-24 14:26 | SUR.PHASEII ---
REPORT GIVEN TO ELADIO AARON ON MED SURG 2 AND IT IS OK TO SEND PATIENT TO THE FLOOR.
--- NOTE | 2020-12-24 15:02 | NURSING ---
preferred language is albanian but feels comfortable speaking in Iranian
--- NOTE | 2020-12-24 15:49 | NURSING ---
admitted [id number]
[2020-12-24] MEDS: Docusate Sodium 100 MG Capsule PO (21:52)
[2020-12-24] MEDS: MELATONIN 10 MG TABLET 5 MG PO (21:53)
[2020-12-25] MEDS: Ketorolac 30 MG/ML Syringe IV ×2 (00:25→05:42)
[2020-12-25] MEDS: Acetaminophen 500 MG Tablet 1000 MG PO ×2 (00:25→09:46)
[2020-12-25] MEDS: 0.9% Saline Lock 10 ML Syringe IV ×2 (00:26→05:42)
--- NOTE | 2020-12-25 01:42 | PCS.PANDOC ---
PANDEMIC DOCUMENTATION INITIATED: Date: 12/24/2020 Time: 6894
[2020-12-25 02:05] VITALS: BP 93/50; PULSE 64; RESP 16; TEMP 36.4; O2SAT 97
[2020-12-25] MEDS: Lactated Ringers 1,000 ML 70 ML IV (02:23)
[2020-12-25 05:19] LABS: Hematocrit 32.3 % (37-47); Hemoglobin 10.6 g/dL (12.0-15.0); Mean Corp Hgb Conc 32.8 g/dL (32-36); Mean Corpuscular Hgb 28.3 pg (27.0-32.0); Mean Corpuscular Volume 86.1 fL (81-99); Mean Platelet Vol. 10.6 fl (6.2-12.0); Platelet Count 172 K/mm3 (150-450); RBC Distribution Width CV 14.1 % (11.6-14.6); RBC Distribution Width SD 43.7 fl (35.1-43.9); Red Blood Count 3.75 M/mm3 (4.2-5.4); White Blood Count 11.1 K/mm3 (4.4-11.0)
[2020-12-25 05:46] VITALS: BP 97/48; PULSE 59; RESP 16; TEMP 37; O2SAT 97
[2020-12-25 07:45] VITALS: O2SAT 97
--- NOTE | 2020-12-25 08:19 | NURSING ---
f/c removed-hat placed in toilet and pt aware to try to urinate in collection hat
--- NOTE | 2020-12-25 08:23 | PCM.PN.OB ---
Subjective Subjective pt is laying in bed she complains of some dizziness but denies pain, vaginal bleeding, fever or chills. Objective Data Objective Data Vital Signs: Vital Signs Temp Pulse Resp BP Pulse Ox 98.6 F 59 L 16 97/48 L 97 12/25/20 05:46 12/25/20 05:46 12/25/20 05:46 12/25/20 05:46 12/25/20 07:45 Oxygen Flow Rate (L/min) 4 Oxygen Delivery Method Room Air Weight: 108 lb 0.424 oz Body Mass Index (BMI) 20.4 Intake & Output: Intake and Output for Last 24 Hours 12/23/20 12/24/20 12/25/20 23:59 23:59 23:59 Intake Total 2121.67 / 2421.67 1300 / 1300 Output Total 575 / 1025 950 / 950 Balance 1546.67 / 1396.67 350 / 350 Lab / Micro Data Result Diagrams: 12/25/20 04:58 Labs: Laboratory Results - last 24 hr 12/24/20 07:35: Blood Type A POSITIVE, Antibody Screen NEGATIVE 12/25/20 04:58: WBC 11.1 H, RBC 3.75 L, Hgb 10.6 L, Hct 32.3 L, MCV 86.1, MCH 28.3, MCHC 32.8, RDW Std Deviation 43.7, RDW Coeff of Leonard 14.1, Plt Count 172, MPV 10.6 ROS Constitutional Constitutional: Denies change in weight, fatigue, fever(s), headache(s), poor appetite or weakness Eyes Eyes: Denies blurry vision, change in vision, seeing flashes or spots in vision ENT HEENT: Denies dizziness, headache(s), loss taste/smell or sore throat Cardiovascular Cardiovascular: Denies chest pain, dizziness, dyspnea, irregular heart rhythm, leg edema, palpitations, rapid heart rate or vomiting Respiratory/Chest Respiratory/Chest: Denies chest tightness, cough, dyspnea or breast pain Gastrointestinal Gastrointestinal: Denies abdominal pain, anorexia, constipation, cramping, diarrhea, hemorrhoids, vomiting or weight changes Genitourinary Genitourinary: Denies dysuria, flank pain, genital lesions, genital pain, urinary frequency or urinary urgency Musculoskeletal Musculoskeletal: Denies back pain, difficulty walking, joint pain, limited range of motion, muscle cramps or numbness Integumentary Integumentary: Denies lesions or unusual bruising Neurologic Neurologic: Denies abnormal movements, abnormal speech, dizziness, numbness, seizure-like activity or syncope Psychiatric Psychiatric: Denies anxiety, behavioral changes, change in appetite, change in libido, cognitive impairment, confusion, depression, difficulty concentrating, hallucinations or suicidal thoughts Endocrine Endocrinology: Denies excessive sweating, polydipsia or polyuria Hematologic/Lymphatic Hematologic/Lymphatic: Denies easy bleeding, easy bruising or lymphadenopathy Allergic/Immunologic Allergic/Immunologic: Denies itchy eyes, lip swelling, seasonal rhinorrhea, rhinitis, throat swelling, tongue swelling, eczemia, wheezing or asthma Physical Exam Const alert, oriented x3 and no apparent distress General Appearance: cooperative and comfortable Resp normal respiratory effort Cardio regular rate GI normal to inspection, nondistended, normoactive bowel sounds Palpation: soft Rectal Exam: other Other Details: non-tender. Incision is clean, dry, and intact. Assessment & Plan (1) H/O myomectomy: (2) Fibroid, uterine: QUALIFIERS: Uterine leiomyoma location: intramural and subserous Qualified Code(s): D25.1 - Intramural leiomyoma of uterus; D25.2 - Subserosal leiomyoma of uterus COMMENT: recovering well from surgery -plan for removal of catheter today -encourage OOB ambulation -dc today -rto in 2 weeks Charges/Coding Multi Select Codes Visit Charges Visit Charges: 33112 Disch Hosp
[2020-12-25 09:50] VITALS: BP 93/60; PULSE 62; RESP 18; TEMP 36.6; O2SAT 99
--- NOTE | 2020-12-25 11:50 | CASEMGMT ---
RN KEN Face to Face with patient for initial transition planning/care coordination assessment. RN CM introduced self and role at [facility]. Patient lying in bed, alert and oriented, at bedside. Patient willing to participate in assessment and is able to answer all questions appropriately. Care providers, pharmacy, and demographics verified. Patient wishes to discharge home, denies need for home health at this time. Patient states he has no further needs or concerns at this time. CM to follow for discharge planning needs that may arise. PCP: No PCP, declined list as patient is moving Specialists: BRENNON Rodas Preferred Pharmacy: [facility] Insurance: [facility] Prescription Benefit: yes Living Will/HPOA: none LNOK: Living Arrangements: Patient lives with in a first floor apartment. Patient is independent and able to ambulate stairs. Transportation: DME/HHC: Patient denies DME or previous HHC Disposition Plan: Patient to discharge home with family support and follow-up plans in place. Cheyenne PATEL, RN, CM
== END 2020-12-25 12:02 | disposition home or self-care (01) | DRG 743 ==
LOC: SDC 15:53 → MS2 15:53
PROVIDERS: Admitting Provider Obstetrics & Gynecology; Referring Provider Obstetrics & Gynecology; Visit Provider Obstetrics & Gynecology
PROC: 0UT90ZZ Resection of Uterus, Open Approach (ICD-10-PCS; CPT 58150; principal; 2020-12-24 08:40)
DX: D25.1 Intramural leiomyoma of uterus (principal); D25.0 Submucous leiomyoma of uterus; D25.2 Subserosal leiomyoma of uterus; N92.0 Excessive and frequent menstruation with regular cycle; Z87.19 Personal history of other diseases of the digestive system
CPT/HCPCS: 36415; 81025; 82962; 83735; 85027; 86850; 86900; 86901; 88305; 99251; J7120; A4216; G0463; J2405; J3475

== ENCOUNTER 2020-12-29 20:18 | Emergency (ER) | payer OTHER, SELFPAY ==
[2020-12-29 20:18] VITALS: BP 131/77; PULSE 92; RESP 16; TEMP 36.9; O2SAT 95; BMI 20.4
--- NOTE | 2020-12-29 20:51 | CT_ITS ---
EXAM: CT ABDOMEN AND PELVIS WITH INTRAVENOUS CONTRAST CLINICAL INDICATION: pelvic pain -- uterine myomectomy 12/25 TECHNIQUE: Helically acquired images were obtained of the abdomen and pelvis with intravenous contrast. This CT exam was performed using one or more of the following dose reduction techniques: automated exposure control, adjustment of the mA and/or kV according to patient size, and/or use of iterative reconstruction technique. This report was created using [employer] report generation technology. CONTRAST: IV 100mL Isovue-300 COMPARISON: 01/14/2019. FINDINGS: LOWER THORAX: Unremarkable. Lung bases are clear. No cardiomegaly. No significant pericardial effusion. ABDOMEN: LIVER: 5 mm low-attenuation lesion in the liver too small to characterize. The liver is otherwise unremarkable. GALLBLADDER AND BILE DUCTS: Unremarkable. No calcified gallstones. No gallbladder distention or wall edema. No intra- or extrahepatic biliary ductal dilation. PANCREAS: Unremarkable. No focal cystic or solid mass. SPLEEN: Unremarkable. Normal size without focal cystic or solid mass. ADRENALS: Unremarkable. No nodules. KIDNEYS AND URETERS: Unremarkable. Normal renal size and position. No hydronephrosis. STOMACH AND BOWEL: Unremarkable. No stomach or bowel distention. No focal inflammatory change. Moderate stool burden. PELVIS: APPENDIX: No evidence of acute appendicitis. BLADDER: Unremarkable. REPRODUCTIVE: Areas of low attenuation in the uterus are nonspecific. These may represent postsurgical changes, less likely uterine fibroids. ABDOMEN and PELVIS: INTRAPERITONEAL SPACE: Trace foci of free intraperitoneal air consistent with recent surgery. No ascites or other fluid collection. BONES/JOINTS: Unremarkable. No suspicious lytic or blastic abnormality. SOFT TISSUES: Mild soft tissue edema and foci of soft tissue gas in the anterior subcutaneous tissues consistent with recent procedure. No discrete abdominal or pelvic wall hernia. VASCULATURE: Unremarkable. Abdominal aorta is normal in caliber. LYMPH NODES: Unremarkable. No enlarged lymph nodes. CT/Abdomen/Pelvis W IV Cont ONLY IMPRESSION: Trace free air consistent with recent procedure. Hepatic hypodensity too small to characterize. Electronically Signed: Naomi Reddy MD at 22:34 EST Tel , Service support ,
[2020-12-29 21:00] LABS: Absolute Lymphocyte Count 1.38 X10^3/uL (0.83-4.51); Absolute Neutrophil Count 3.8 X10^3/uL (2.0-7.7); Basophil# 0.02 X10^3/uL; Basophil% 0.3 % (0-1); Eosinophil# 0.19 X10^3/uL; Eosinophils% 3.3 % (0-5); Hematocrit 35.9 % (37-47); Hemoglobin 11.5 g/dL (12.0-15.0); Lymphocyte # 1.38 X10^3/ul (0.83-4.51); Lymphocyte % 24.1 % (19-41); Mean Corpuscular Hgb 27.8 pg (27.0-32.0); Mean Corpuscular Volume 86.9 fL (81-99); Mean Platelet Vol. 10.1 fl (6.2-12.0); Monocyte% 5.2 % (0-10); NRBC Flagged by Analyzer 0 % (0-5); Neutrophil # 3.82 X10^3/uL (2.7-7.7); Neutrophil % 66.9 % (47-70); Platelet Count 233 K/mm3 (150-450); RBC Distribution Width CV 13.8 % (11.6-14.6); RBC Distribution Width SD 43.8 fl (35.1-43.9); Red Blood Count 4.13 M/mm3 (4.2-5.4); White Blood Count 5.7 K/mm3 (4.4-11.0)
--- NOTE | 2020-12-29 21:05 | EDS_ITS ---
HPI History of Present Illness Chief Complaint: Abd Pain Informant: patient Onset/Context/Timing Onset: Today Current Severity: Moderate Maximum Severity: Moderate Narrative Narrative: Patient presents secondary to pelvic pain. She had a myomectomy for uterine fibroids on December 25. Patient was discharged home with Percocet and Naprosyn. She states she is only taken 2 Percocet but is taking her naproxen. This afternoon she start developing sharp stabbing pains deep in her pelvis and through to her back. She believes she might be constipated but did have a bowel movement this afternoon. No fever or chills. She is no longer having vaginal bleeding. [facility] Medical History Anemia Non-smoker Stomach ulcer Uterine fibroid Wears contact lenses Wears glasses Home Medications L-Theanine 100 mg PO/SL DAILY 12/17/20 [History Last Taken Unknown] melatonin 5 mg PO QHS 12/17/20 [History Last Taken Unknown] multivitamin 1 tab PO DAILY 12/17/20 [History Last Taken Unknown] naproxen 500 mg PO BID PRN PRN #30 tab 12/24/20 [Rx Last Taken Unknown] oxycodone-acetaminophen 1 - 2 tab PO Q6H PRN 7 Days #20 tab 12/24/20 [Rx Last Taken Unknown] Allergy/AdvReac Type Severity Reaction Status Date / Time No Known Allergies Allergy Verified 12/29/20 20:21 Family History Grandmother Breast cancer Surgical History No significant past medical history Social History adopted: No household members: spouse housing: apartment current occupational status: unemployed pets and animals: No history of recent travel: Yes details: [place]/ [place], [place], [place] out of state: Yes out of country: Yes sexually active: Yes Smoking Status: Never smoker second hand exposure: No alcohol intake: never substance use type: does not use seatbelt use: always do you feel safe at home: Yes 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 ROS ROS ED Constitutional Constitutional ED: Denies chills or fever(s) Eyes Eyes: Denies change in vision ENT ENT ED: Denies sore throat Cardiovascular Cardiovascular: Denies chest pain Respiratory/Chest Respiratory/Chest: Denies cough or dyspnea Gastrointestinal Gastrointestinal: Reports abdominal pain; Denies diarrhea, nausea or vomiting Genitourinary Genitourinary ED: Denies dysuria Musculoskeletal Musculoskeletal: Reports back pain Integumentary Denies rash Neurologic Neurologic: Denies headache(s) or weakness Allergic/Immunologic Allergic/Immunologic ED: Denies urticaria EXAM Physical Exam Const Vital Signs: 12/29/20 20:18 12/29/20 21:20 Temperature 98.4 F 98.4 F Temperature Source Temporal Temporal Pulse Rate 92 92 Respiratory Rate 16 16 Blood Pressure 131/77 H 131/77 H Blood Pressure Mean 95 95 Pulse Ox 95 95 Oxygen Delivery Method Room Air Room Air Positive well nourished and well developed General Appearance ED: well developed Eyes PERRL and EOMs intact bilaterally Neck supple Chest Wall inspection of chest normal and palpation of chest normal Resp normal respiratory effort and clear to auscultation bilaterally Cardio regular rate and regular rhythm GI GI Narrative: Mild tenderness to lower abdomen. Well healing surgical incision. No surrounding skin infection. No guarding or rebound. Hypoactive but present bowel sounds noted. Extremity normal to inspection Neuro oriented x3 Sensorium / Orientation: alert Psych mental status grossly normal Skin no rashes or lesions noted MDM MDM MDM Narrative Medical decision making narrative: Patient was given 2 mg of morphine along with 50 mg of Toradol, Zofran, IV fluids. Lab work, urinalysis, CT with IV contrast obtained. Lab Data Attestation: I reviewed the patient's lab results. Labs: Laboratory Results - last 24 hr 12/29/20 12/29/20 12/29/20 20:48 20:48 21:25 WBC 5.7 RBC 4.13 L Hgb 11.5 L Hct 35.9 L MCV 86.9 MCH 27.8 MCHC 32.0 RDW Std Deviation 43.8 RDW Coeff of Leonard 13.8 Plt Count 233 MPV 10.1 Immature Gran % (Auto) 0.200 Neut % (Auto) 66.9 Lymph % (Auto) 24.1 Imperial % (Auto) 5.2 Eos % (Auto) 3.3 Baso % (Auto) 0.3 Absolute Neuts (auto) 3.8 Absolute Lymphs (auto) 1.38 Nucleated RBC % 0 Sodium 141 Potassium 4.1 Chloride 109 H Carbon Dioxide 28.0 Anion Gap 4 L BUN 11 Creatinine 0.61 Estim Creat Clear Calc 92.51 Est GFR (MDRD) Af Amer 140 Est GFR (MDRD) Non-Af 116 BUN/Creatinine Ratio 18.1 Glucose 106 Calcium 8.9 Urine Color Straw Urine Clarity Clear Urine pH 7.0 Ur Specific [place] 1.010 Urine Protein Negative Urine Glucose (UA) Normal Urine Ketones Negative Urine Occult Blood Negative Urine Nitrite Negative Urine Bilirubin Negative Urine Urobilinogen Normal Ur Leukocyte Esterase Negative Urine RBC 0-5 SEEN Urine WBC 0 SEEN Ur Squamous Epith Cells 0-5 SEEN Urine Bacteria 0 SEEN Urine Mucus 0 SEEN Radiography Diagnostic Testing: Clinical Impression(s) from Imaging Studies Abdomen/Pelvis CT 12/29/20 20:51 IMPRESSION: Trace free air consistent with recent procedure. Hepatic hypodensity too small to characterize. Electronically Signed: Naomi Reddy MD at 22:34 EST Tel , Service support , Treatment and Re-Evaluation Comments:: Patient's lab work is unremarkable. CT scan reveals no evidence of abscess or other acute finding from surgery. Moderate stool burden is noted. No bowel obstruction. Test results discussed with the patient. She will be given a bottle of magnesium citrate. She is instructed to drink half the bottle tomorrow morning. If no significant results in 4 hours she is to drink the other half. Discharge Plan Triage Chief Complaint: Abd Pain ED Provider: Rain Gee Dx/Rx/DC Orders Clinical Impression: Constipation Instructions: ED Constipation (Adult) Prescriptions: No Action multivitamin Tablet 1 tab PO DAILY RF: 0 melatonin 5 mg Tablet 5 mg PO QHS RF: 0 L-Theanine 100 mg PO/SL DAILY RF: 0 oxycodone-acetaminophen [oxycodone-acetaminophen] 1 TABLET tablet 1 - 2 tab PO Q6H PRN (Reason: pain) 7 Days Qty: 20 RF: 0 naproxen 500 MG tablet 500 mg PO BID PRN PRN (Reason: Pain) Qty: 30 RF: 0 Primary Care Provider: Care Physician,No Primary Referrals: Rain Celaya DO [STAFF PHYSICIAN] - 1-2 Weeks Care Physician,No Primary [Primary Care Provider] - Activity Restrictions/Additional Instructions: Magnesium citrate - drink 1/2 bottle. If no significant results in 4 hours, drink the remainder of the bottle. Disposition Disposition: Home, Self Care
[2020-12-29 21:15] LABS: Anion Gap 4 (5-15); BUN 11 mg/dL (7-18); BUN/Creat Ratio 18.1 RATIO (10-20); Calcium,Total 8.9 mg/dL (8.5-10.1); Chloride 109 mmol/L (98-107); Creatinine, Serum 0.61 mg/dL (0.55-1.02); EST Glomerular Filtration Rate 116 mL/min (>60); Est Glom Filt Rate - Afr Amer 140 mL/min (>60); Estimated Creatinine Clearance 92.51 ml/min; Glucose 106 mg/dL (74-106); Potassium 4.1 mmol/L (3.5-5.1); Sodium Level 141 mmol/L (136-145)
[2020-12-29 21:20] VITALS: BP 131/77; PULSE 92; RESP 16; TEMP 36.9; O2SAT 95
[2020-12-29] MEDS: 0.9% Normal Saline 1,000 ML 150 ML IV (21:27)
[2020-12-29] MEDS: Ondansetron 4 MG/2 ML Vial IV (21:27)
[2020-12-29] MEDS: Ketorolac 15 MG/ML Vial IV (21:27)
[2020-12-29] MEDS: Morphine 2 MG/ML Syringe IV (21:27)
[2020-12-29 21:35] LABS: Bacteria 0 SEEN /hpf (None Seen); Mucous, Urine 0 SEEN /hpf (<or=2+); White Blood Cells 0 SEEN /hpf (0-5)
[2020-12-29 21:40] LABS: Color, Urine Straw (Yellow); Glucose, Dipstick Normal (Normal); Ketone-Dipstick Negative (Negative); Leukocyte Esterase-Dipstick Negative /ul (Negative); Nitrite-Dipstick Negative (Negative); Occult Blood-Urine Negative /ul (Negative); Protein-Dipstick Negative (Negative); Urine Bilirubin Dipstick Negative (Negative); Urine Clarity Clear (Clear); Urine Urobilinogen Normal (Normal)
[2020-12-29 21:51] LABS: Squamous Epithelial Cells - UA 0-5 SEEN /hpf (5-10)
[2020-12-29 21:52] LABS: Red Blood Cells-Urine 0-5 SEEN /hpf (0-5)
[2020-12-29] MEDS: Magnesium Citrate 300 ML PO (22:48)
[2020-12-29 22:49] VITALS: BP 128/75; PULSE 80; RESP 16; O2SAT 95
== END 2020-12-29 22:50 | disposition home or self-care (01) ==
PROVIDERS: Emergency Provider Emergency Medicine
DX: K59.00 Constipation, unspecified (principal); Z87.19 Personal history of other diseases of the digestive system
CPT/HCPCS: 74177; 80048; 81001; 85025; 96361; 96374; 96375; 99284; J7030; Q9967; A4216; J2405

== ENCOUNTER 2021-03-13 09:30 | Day surgery (SDC) | payer OTHER, SELFPAY ==
[2021-03-13] VITALS (10 sets, daily range): BP systolic 84–114; BP diastolic 58–75; PULSE 54–85; RESP 16; TEMP 35.6–36.4; O2SAT 99–100
--- NOTE | 2021-03-13 09:53 | HP.PCM_ITS ---
History and Physical Date of Admission: 03/13/21 THIERRY COLEMAN, is a 40 F who presents to the office today for Referral from Dr. Rodas for rectal spasm. Attempted belladonna opium suppositories. 12/24/20 underwent surgery to address uterine fibroid. CT abd/pel performed 12/29/20 with 5mm low-attenuation lesion on liver too small to characterize. William reports two concerns, the first being gastric ulcer. Pain in her stomach occurring when she is too hungry and gets worse when she does not eat something. PCP seen for this several years prior who told her it was a stomach ulcer and medication given which did not heal. She then returned to [facility] she had an EGD performed two years ago and reports no abnormal results. The second concern is protalgia fugax. Symptoms she had include stabbing pain in her lower buttock that causes her to be unable to move lasting a couple of minutes. The medication she received following uterine surgery caused her to have constipation which as continued despite stopping the medication. ROS Eyes Eyes: Positive for irritation Gastro GI: Positive for constipation Exam Const General: cooperative and comfortable Nutritional Appearance: average body habitus and well nourished [facility] Head: normal to inspection Ears: hearing grossly normal bilaterally Nose: external nose normal Face and sinus: normal facial exam Mouth: oral mucosae normal Throat: posterior oropharynx normal Eyes General: appearance normal, both eyes and all related structures Neck Neck: normal visual inspection Chest Chest palpation & inspection: normal inspection of the chest and normal palpation of entire chest wall Resp Effort & Inspection: normal respiratory effort Auscultation: Bilateral: Clear to Auscultation Cardio Palpation: normal PMI Rate: regular rate Rhythm: regular rhythm GI Inspection: normal to inspection Auscultation: normal bowel sounds Percussion: normal to percussion Palpation: no hepatosplenomegaly Skin General: no rashes or lesions noted Neuro General: patient alert Extrem General: normal to inspection Psych Affect: normal affect Quality Reporting Tobacco Screening ([facility] 138) Smoking Status: Never smoker Assessment and Plan Assessment and Plan (1) Abdominal pain: Status: Acute Orders: Orders: Colonoscopy 02/07/21 EGD 02/07/21 Plan - Dr. Castle Friend, DO: She has a history of gastric ulcer that was identified previously. She is having abdominal pain consistent with a possible gastric or duodenal ulcer. We will evaluate her upper GI tract. She is not on PPI therapy. We will need to institute that twice a day. Plus or minus a cytoprotective agent prior to her undergone upper endoscopy. (2) Constipation: Status: Acute Orders: Orders: Colonoscopy 02/07/21 EGD 02/07/21 Plan - Dr. Castle Friend, DO: She is not taking anything for constipation at this time. I told her she can take bisacodyl (3) Rectal spasm: Status: Acute Plan - Dr. Castle Friend, DO: Rectal spasm is a lot better however she still having the symptoms. We will evaluate her lower GI tract to make sure we given appropriate recommendations. I have re-examined the patient. There are no clinical changes since date of exam.
[2021-03-13 10:01] LABS: Internal QC Validated? YES +Cl - CLEAR BKGD
[2021-03-13 10:05] LABS: Pregnancy, Urine Negative Negative
[2021-03-13] MEDS: Lactated Ringers 1,000 ML 15 ML IV (10:19)
--- NOTE | 2021-03-13 10:30 | IMM_PTH ---
PATIENT: THIERRY VARGAS LOC: EN U#:[id number] AGE/SX: 40/F ROOM: RE03/13/[address]: Dr. Tin Lynne DO : 1980 BED: DIS: 03/13/2021 SPEC #: [id number] RECD: 03/14/21 14:55 STATUS: VA REQ #: [id number] GUY: 03/13/21 10:[address]: Tin Lynne DEPT: IMMUNOHISTOCHEMISTRY RECD BY: Dana Us ENTERED: 03/14/21 14:56 SP TYPE: IMMUNO OTHR DR: Mamie Primary Care Phys Tissues: B - Stomach, NOS Procedures: H Pylori (initial) PHYSICIAN & INSTITUTION [place] [address] SPECIMEN INFORMATION: Tissue Source: B ? Gastric antrum Clinical Info: Abdominal pain, constipation, rectal spasm Specimen Number: [id number] CPT code: 47186 METHODOLOGY: Deparaffinized sections of prefer/formalin-fixed tissue or PAP/DQ stained slides are incubated with monoclonal/polyclonal antibodies/oligonucleotide probes. Localization is made via biotin free immunoperoxidase method. Appropriate controls are performed and reacted as expected. Results on target cell population are indicated in the following table: RESULTS: ANTIBODY / CLONE RESULT Block B H Pylori (polyclonal) negative These tests were developed and their performance characteristics determined by [facility]. They may not have been cleared or approved by the U.S. Food and Drug Administration. The FDA has determined that such clearance or approval is not necessary. INTERPRETATION: B. Gastric antrum, biopsy: Negative for Helicobacter pylori organisms. SJ:jessika 03/17/2021
--- NOTE | 2021-03-13 10:30 | EGD_PTH ---
PATIENT: THIERRY VARGAS LOC: EN U#:[id number] AGE/SX: 40/F ROOM: RE03/13/[address]: Dr. Tin Lynne DO : 1980 BED: DIS: 03/13/2021 SPEC #: [id number] RECD: 03/13/21 14:11 STATUS: VA REAndre #: [id number] GUY: 03/13/21 10:[address]: Tin Lynne DEPT: SURGICAL PATHOLOGY RECD BY: Risa Ingram ENTERED: 03/14/21 11:34 SP TYPE: EGD BIOPSY OT DR: Mamie Primary Care Phys Tissues: A - Duodenum, NOS B - Gastric mucous membrane C - Esophagus, NOS D - Ileum, NOS E - Cecum, NOS F - Rectum, NOS Procedures: Surgery Specimen Level IV HEADER OPERATION: Colonoscopy, EGD ([facility]) PRE-OP DIAGNOSIS: Abdominal pain, constipation, rectal spasm TISSUE SUBMITTED: A ? Duodenum biopsy, B ? Gastric antrum for H. pylori and path, C ? Random esophagus biopsy, D ? Terminal ileum biopsy, E ? Cecum biopsy, F ? Biopsy of rectal polyp MICROSCOPIC DIAGNOSIS A. Duodenum, biopsy: Fragments of duodenal mucosa, no pathologic diagnosis. B. Gastric antrum, biopsy: Mild gastritis. See microscopic description and comment. C. Esophagus, random biopsy: Fragments of squamous epithelium, no pathologic diagnosis. D. Terminal ileum, biopsy: A fragment of small intestinal mucosa, no pathologic diagnosis. E. Cecum, biopsy: Fragments of colonic mucosa, no pathologic diagnosis. F. Rectal polyp, biopsy: Tubular adenoma. SJ:jessika 03/17/2021 COMMENT B. The results of immunohistochemistry for Helicobacter pylori will be reported separately ([id number]). MICROSCOPIC DESCRIPTION Slides are reviewed. B. The specimen shows fragments of gastric mucosa with chronic inflammatory cell infiltrates in the lamina propria consisting of lymphocytes and plasma cells, consistent with mild chronic gastritis. Focal mucosal congestion and hemorrhage are also noted. GROSS DESCRIPTION A - Received in fixative is one container labeled with the patient's name and designated duodenum biopsy. The specimen consists of multiple irregular fragments of light sandoval soft tissue that in aggregate measure 0.6 x 0.2 x 0.1 cm. The specimen is totally submitted in one cassette. B - Received in fixative is one container labeled with the patient's name and designated gastric antrum biopsy. The specimen consists of two irregular fragments of light sandoval soft tissue that in aggregate measure 0.8 x 0.4 x 0.1 cm. The specimen is totally submitted in one cassette. C - Received in fixative is one container labeled with the patient's name and designated random esophagus biopsy. The specimen consists of multiple irregular fragments of light sandoval soft tissue that in aggregate measure 0.4 x 0.3 x 0.1 cm. The specimen is totally submitted in one cassette. D - Received in fixative is one container labeled with the patient's name and designated terminal ileum biopsy. The specimen consists of one irregular fragment of light sandoval soft tissue that measures 0.4 x 0.4 x 0.1 cm. The specimen is totally submitted in one cassette. E - Received in fixative is one container labeled with the patient's name and designated cecum biopsy. The specimen consists of multiple irregular fragments of light sandoval soft tissue that in aggregate measure 0.6 x 0.2 x 0.1 cm. The specimen is totally submitted in one cassette. F - Received in fixative is one container labeled with the patient's name and designated biopsy of rectal polyp. The specimen consists of one irregular fragment of light sandoval soft tissue that measures 0.2 x 0.2 x 0.1 cm. The specimen is totally submitted in one cassette. / SJ:rg 03/14/2021 TC:1 CPT: 71074 x6
--- NOTE | 2021-03-13 10:47 | OP.CCLET_ITS ---
10/30/2021 No Primary Care Physician Re : Upper GI endoscopy procedure for Navdeep Gregg Dear Care Physician This procedure was performed on February. My impressions and recommendations are as follows: Impressions : - Normal esophagus. Biopsied. - Gastric stenosis was found at the pylorus. Unable to dilate. - Normal second portion of the duodenum. Biopsied. - Erythematous mucosa in the antrum. Biopsied. Recommendations : - Discharge patient to home. - Resume previous diet. - Continue present medications. - Await pathology results. - Return to my office. My findings are described in the full procedure note, which is enclosed. If I can be of further assistance, please feel free to contact me at . Sincerely, Tin Lynne, 03/13/2021 10:46:37 AM This report has been signed electronically.
--- NOTE | 2021-03-13 10:47 | OP.EGD_ITS ---
Patient Name: Navdeep Gregg Procedure Date: 03/13/2021 10:24 AM Date of : 1980 Age: 40 Procedure: Upper GI endoscopy Indications: Epigastric abdominal pain Providers: Tin Lynne DO Medicines: See the Anesthesia note for documentation of the administered medications Patient Profile: This is a 40 year old female. Refer to note in patient chart for documentation of history and physical. Patient has symptoms of acute abdominal cramping. Complications: No immediate complications. Procedure: Pre-Anesthesia Assessment: - Prior to the procedure, a History and Physical was performed, and patient medications and allergies were reviewed. The patient is competent. The risks and benefits of the procedure and the sedation options and risks were discussed with the patient. All questions were answered and informed consent was obtained. Patient identification and proposed procedure were verified by the physician in the pre-procedure area. Mental Status Examination: alert and oriented. Airway Examination: normal oropharyngeal airway and neck mobility. Respiratory Examination: clear to auscultation. CV Examination: normal. Prophylactic Antibiotics: The patient does not require prophylactic antibiotics. Prior Anticoagulants: The patient has taken no previous anticoagulant or antiplatelet agents. ASA Grade Assessment: II - A patient with mild systemic disease. After reviewing the risks and benefits, the patient was deemed in satisfactory condition to undergo the procedure. The anesthesia plan was to use moderate sedation / analgesia (conscious sedation). Immediately prior to administration of medications, the patient was re-assessed for adequacy to receive sedatives. The heart rate, respiratory rate, oxygen saturations, blood pressure, adequacy of pulmonary ventilation, and response to care were monitored throughout the procedure. The physical status of the patient was re-assessed after the procedure. After obtaining informed consent, the endoscope was passed under direct vision. Throughout the procedure, the patient's blood pressure, pulse, and oxygen saturations were monitored continuously. The colonoscope was introduced through the mouth, and advanced to the second part of duodenum. The upper GI endoscopy was accomplished without difficulty. The patient tolerated the procedure well. Moderate Sedation: Moderate (conscious) sedation was administered by the endoscopy nurse and supervised by the endoscopist. The following parameters were monitored: oxygen saturation, heart rate, blood pressure, and response to care. Total physician intraservice time was 15 minutes. Scope In: 10:36:38 AM Scope Out: 10:42:24 AM Total Procedure Duration Time 0 hours 5 minutes 46 seconds Findings: The examined esophagus was normal. Biopsies were obtained from the proximal and distal esophagus with cold forceps for histology of suspected eosinophilic esophagitis. A benign-appearing, intrinsic moderate stenosis was found at the pylorus. This was traversed. A guidewire was placed and the scope was withdrawn. Dilation was attempted, but the lesion was not amenable to treatment with a Savary dilator due to no resistance at 33 Fr. The dilation site was examined following endoscope reinsertion and showed moderate improvement in luminal narrowing. Estimated blood loss was minimal. The second portion of the duodenum was normal. Biopsies were taken with a cold forceps for histology. Verification of patient identification for the specimen was done. Estimated blood loss was minimal. Patchy mildly erythematous mucosa without bleeding was found in the gastric antrum. Biopsies were taken with a cold forceps for histology. Verification of patient identification for the specimen was done. Estimated blood loss was minimal. Impression: - Normal esophagus. Biopsied. - Gastric stenosis was found at the pylorus. Unable to dilate. - Normal second portion of the duodenum. Biopsied. - Erythematous mucosa in the antrum. Biopsied. Recommendation: - Discharge patient to home. - Resume previous diet. - Continue present medications. - Await pathology results. - Return to my office. Procedure Code(s): --- Professional --- 56669, Esophagogastroduodenoscopy, flexible, transoral; with dilation of gastric/duodenal stricture(s) (eg, balloon, bougie) 71392, 59, Esophagogastroduodenoscopy, flexible, transoral; with biopsy, single or multiple 65094, 59, Moderate sedation services provided by the same physician or other qualified health landcare facilitator performing the diagnostic or therapeutic service that the sedation supports, requiring the presence of an independent trained observer to assist in the monitoring of the patient's level of consciousness and physiological status; initial 15 minutes of intraservice time, patient age 5 years or older CPT copyright 2017 [employer]. All rights reserved. The codes documented in this report are preliminary and upon community marketing manager review may be revised to meet current compliance requirements. Tin Lynne DO 03/13/2021 10:46:37 AM This report has been signed electronically. Number of Addenda: 1 Note Initiated On: 03/13/2021 10:24 AM Addendum Number: 1 Addendum Date: 10/30/2021 6:21:21 AM MAC was used instead of moderate sedation for the patient. Tin Lynne DO 10/30/2021 6:21:26 AM This report has been signed electronically.
--- NOTE | 2021-03-13 11:20 | OP.COLON_ITS ---
Patient Name: Navdeep Gregg Procedure Date: 03/13/2021 10:43 AM Date of : 1980 Age: 40 Procedure: Colonoscopy Indications: Abdominal pain in the left lower quadrant Providers: Tin Lynne DO Medicines: See the Anesthesia note for documentation of the administered medications Patient Profile: This is a 40 year old female. Refer to note in patient chart for documentation of history and physical. Patient has symptoms of acute abdominal cramping. Last Colonoscopy: none. The patient's first colonoscopy is today. Complications: No immediate complications. Procedure: Pre-Anesthesia Assessment: - Prior to the procedure, a History and Physical was performed, and patient medications and allergies were reviewed. The patient is competent. The risks and benefits of the procedure and the sedation options and risks were discussed with the patient. All questions were answered and informed consent was obtained. Patient identification and proposed procedure were verified by the physician in the pre-procedure area. Mental Status Examination: alert and oriented. Airway Examination: normal oropharyngeal airway and neck mobility. Respiratory Examination: clear to auscultation. CV Examination: normal. Prophylactic Antibiotics: The patient does not require prophylactic antibiotics. Prior Anticoagulants: The patient has taken no previous anticoagulant or antiplatelet agents. ASA Grade Assessment: II - A patient with mild systemic disease. After reviewing the risks and benefits, the patient was deemed in satisfactory condition to undergo the procedure. The anesthesia plan was to use moderate sedation / analgesia (conscious sedation). Immediately prior to administration of medications, the patient was re-assessed for adequacy to receive sedatives. The heart rate, respiratory rate, oxygen saturations, blood pressure, adequacy of pulmonary ventilation, and response to care were monitored throughout the procedure. The physical status of the patient was re-assessed after the procedure. After I obtained informed consent, the scope was passed under direct vision. Throughout the procedure, the patient's blood pressure, pulse, and oxygen saturations were monitored continuously. The colonoscope was introduced through the anus and advanced to the terminal ileum. The ileocecal valve, appendiceal orifice, and rectum were photographed. Moderate Sedation: Moderate (conscious) sedation was administered by the endoscopy nurse and supervised by the endoscopist. The following parameters were monitored: oxygen saturation, heart rate, blood pressure, and response to care. Total physician intraservice time was 15 minutes. Scope In: 10:48:46 AM Scope Withdrawal Time 0 hours 13 minutes 43 seconds Scope Out: 11:12:14 AM Total Procedure Duration Time 0 hours 23 minutes 28 seconds Findings: The perianal and digital rectal examinations were normal, except for some hemorrhoids and a healing anal fissure. The transverse colon was significantly redundant. A 5 mm polyp was found in the rectum. The polyp was sessile. The polyp was removed with a hot snare. Resection and retrieval were complete. Verification of patient identification for the specimen was done. Estimated blood loss was minimal. An area of mildly congested mucosa was found in the cecum. Biopsies were taken with a cold forceps for histology. A patchy area of the distal ileum was congested. Impression: - Redundant colon. - One 5 mm polyp in the rectum, removed with a hot snare. Resected and retrieved. - Congested mucosa in the cecum. Biopsied. - Congested mucosa in the distal ileum. Recommendation: - Discharge patient to home. - Resume previous diet. - Continue present medications. - Await pathology results. - Await pathology results. - Return to my office. - Repeat colonoscopy is recommended for surveillance. The colonoscopy date will be determined after pathology results from today's exam become available for review. - Use hydrocortisone suppository 25 mg 2 per rectum once a day for 2 weeks. Procedure Code(s): --- Professional --- 71284, Colonoscopy, flexible; with removal of tumor(s), polyp(s), or other lesion(s) by snare technique 95742, 59, Colonoscopy, flexible; with biopsy, single or multiple 97308, 59, Moderate sedation services provided by the same physician or other qualified health care professionals performing the diagnostic or therapeutic service that the sedation supports, requiring the presence of an independent trained observer to assist in the monitoring of the patient's level of consciousness and physiological status; initial 15 minutes of intraservice time, patient age 5 years or older CPT copyright 2017 [employer]. All rights reserved. The codes documented in this report are preliminary and upon cytometry technologist review may be revised to meet current compliance requirements. Tin Lynne DO 03/13/2021 11:19:12 AM This report has been signed electronically. Number of Addenda: 1 Note Initiated On: 03/13/2021 10:43 AM Addendum Number: 1 Addendum Date: 10/30/2021 6:21:34 AM MAC was used instead of moderate sedation for the patient. Tin Lynne DO 10/30/2021 6:21:38 AM This report has been signed electronically.
--- NOTE | 2021-03-13 11:20 | OP.CCLET_ITS ---
10/30/2021 No Primary Care Physician Re : Colonoscopy procedure for Navdeep Gregg Dear Care Physician This procedure was performed on February. My impressions and recommendations are as follows: Impressions : - Redundant colon. - One 5 mm polyp in the rectum, removed with a hot snare. Resected and retrieved. - Congested mucosa in the cecum. Biopsied. - Congested mucosa in the distal ileum. Recommendations : - Discharge patient to home. - Resume previous diet. - Continue present medications. - Await pathology results. - Await pathology results. - Return to my office. - Repeat colonoscopy is recommended for surveillance. The colonoscopy date will be determined after pathology results from today's exam become available for review. - Use hydrocortisone suppository 25 mg 2 per rectum once a day for 2 weeks. My findings are described in the full procedure note, which is enclosed. If I can be of further assistance, please feel free to contact me at . Sincerely, Tin Lynne, 03/13/2021 11:19:12 AM This report has been signed electronically.
== END 2021-03-13 23:59 | disposition home or self-care (01) ==
LOC: EN 09:40 → AC 09:40
PROVIDERS: Anesthesiology; Visit Provider Internal Medicine Gastroenterology
PROC: 0DJD8ZZ Inspection of Lower Intestinal Tract, Via Natural or Artificial Opening Endoscopic (ICD-10-PCS; CPT 45378; principal; 2021-03-13 10:25)
DX: K31.1 Adult hypertrophic pyloric stenosis (principal); D12.8 Benign neoplasm of rectum; K29.70 Gastritis, unspecified, without bleeding; K64.9 Unspecified hemorrhoids; K63.89 Other specified diseases of intestine; Q43.8 Other specified congenital malformations of intestine; K59.00 Constipation, unspecified; K59.4 Anal spasm
CPT/HCPCS: 45385; 43239; 45380; 43245; 81025; 88305; 88342; J7120; A4216; J2405